=== PATIENT | male | born 1925 | race Caucasian/White ===

== ENCOUNTER → 2016-09-16 | Outpatient (CLI) | payer MEDICARE ==
[~2016-09-16] MED LIST: ACETAMINOPHEN PO; ALLOPURINOL300 MG PO; ASPIRIN81 M2 PO; BACID PO; CARBIDOPA-LEVO1 EAC5 PO; ELIQUIS2.5 MG PO; EYE VITAMIN; FERROUS SULFAT324 MG PO; FLOMAX0.4 M1; FLOMAX0.4 M1 PO; FLORINEF0.1 M1 PO; KCL PO; LOMOTIL WHITE2.5 M1 PO; MEGACE ORA40 MG/ML S PO; METOPROLOL SUCC25 MG PO; NEURONTIN100 MG PO; ONDANSETRON ODT4 MG PO; PRILOSEC PO; SINEMET-25/1001 TA1 PO; TRIAMTERENE-HC1 EAC1 PO; VANCOMYCIN HCL500 MG PO
--- NOTE | ~2016-09-16 | CT2 ---
[facility]. [facility] A Service of [facility] & [facility] RADIOLOGY TEXT RESULTS PATIENT: SANDY FRAUSTO LOCATION: [facility] : [birth year] UNIT #: [id number] AGE: [address]: Terry Bustillo MD SEX: M ORDER DR: [id number] [place] [id number] MR#: [id number] Acc #: [id number] NAME: SANDY FRAUSTO : 1925 SEX: M STUDY DATE/TIME: 09/16/2016 9:30 UNIT: [facility] ROOM: STUDY DESCRIPTION: CT Abd and Pelv W Cont Attending Physician: Terry Bustillo M.D. Referring Physician: Terry Bustillo M.D. Ordering Physician: Terry Bustillo M.D. Primary Care Physician: Irwin Ruano M.D. MEDICAL IMAGING REPORT This report is preliminary unless electronic signature is present. EXAM CT abdomen and pelvis INDICATION Anemia. 30 pound weight loss over 2 months. Hematochezia. Right-sided palpable mass/lump. Lower abdominal pain. TECHNIQUE CT of the abdomen and pelvis with p.o. and IV contrast (60 mL Isovue-370 IV contrast). Coronal and sagittal reconstructions were obtained. This CT exam was performed with one or more of the following radiation dose reduction techniques: automatic exposure control, adjustment of mA and/or kV according to patient size, and iterative reconstruction. COMPARISON None available. FINDINGS ABDOMEN: There is a circumferential mass involving the cecum and proximal ascending colon. The mass measures up to 9.0 cm in length. The irregular eccentric wall thickening measures up to 2.1 cm. There is stranding in the pericolonic fat indicating subserosal invasion. An abnormal lymph node in the right lower quadrant mesentery measures 1.7 x 2.5 cm. This has appearance of a primary colonic neoplasm. There is normal and uniform enhancement of the liver. The pancreas, spleen, adrenal glands, and kidneys are within normal limits. The small bowel is not dilated. No enlarged retroperitoneal lymph nodes. There is a 3.0 cm infrarenal abdominal aortic aneurysm. There is a focal stenosis of the proximal left common iliac artery. This is estimated at 70%-80% luminal stenosis. There is moderate atherosclerotic disease of STS. [facility] A Service of [facility] RADIOLOGY TEXT RESULTS PATIENT: SANDY FRAUSTO LOCATION: [facility] : [birth year] UNIT #: [id number] AGE: [address]: Terry Bustillo MD SEX: M ORDER DR: the right common iliac artery and the external iliac arteries. PELVIS: Bladder is unremarkable. There appears to have been prior left and right inguinal hernia repairs. No enlarged pelvic or inguinal lymph nodes. No acute osseous abnormalities. IMPRESSION 1. Eccentric mucosal thickening within the cecum and ascending colon compatible with a large mass measuring up to 9.0 cm. This has appearance most typical for an adenocarcinoma. Confirmation with colonoscopy is recommended. 2. Enlarged right lower quadrant mesenteric lymph node consistent with local metastatic disease. 3. 3.0 cm infrarenal abdominal aortic aneurysm. 4. 70%-80% luminal stenosis of the proximal left common iliac artery. 5. Not mentioned above, there is a lytic lesion associated with the superior endplate of L3. This is most consistent with a Schmorl's node, however can be followed. Unexpected findings were called to Dr. Bustillo's office at 10:30 on 09/16/2016. A message was left for Dr. Bustillo with the office staff. Dictated by... Antony Stovall M.D. THIS IS AN ELECTRONICALLY VERIFIED REPORT Antony Stovall M.D. at 09/16/2016 12:43 PM MILLICENT/darnell TD: 09/16/2016 10:42 JOB #: [id number] MEDICAL IMAGING REPORT Page 1 of 1
[2016-09-16 08:20] LABS: POC - CREATININE 1.23 mg/dL (0.64-1.27)
== END | disposition home or self-care (01) ==
LOC: SCT 10:00
PROVIDERS: Internal Medicine Gastroenterology
DX: D50.9 Iron deficiency anemia, unspecified (principal); R63.4 Abnormal weight loss; K63.89 Other specified diseases of intestine; R59.0 Localized enlarged lymph nodes; I70.8 Atherosclerosis of other arteries; I72.2 Aneurysm of renal artery
CPT/HCPCS: 74177; 82565; Q9967

== ENCOUNTER 2016-09-22 14:30 | Inpatient (IN) | payer MEDICARE ==
--- NOTE | ~2016-09-22 | FU ---
[facility] Nutrition Therapy DATE: 10/09/16 Patient: SANDY BARTONBRUCE Physician: DAYANARA Address: [address] [place] [address] Room/Bed: [address] [place] [address], Zip: [place] [address] Admit Date: 09/22/16 Date of : [birth year] Height: 5 8 Weight: 160 73 NUTRITION MONITORING/FOLLOW-UP: Reason: Nutrition follow up Anthropometrics: Wt 10/06 (last updated wt): 73 kg Labs: Cl- 114 Ca++ 7.3 CFR 48.4 Meds: Megace oral, protonix, phenergan, zofran I&O's: 2280/3, last BM 10/07, active bowel sounds Skin: Open surgical wound to abdomen Edema: Right hand 1+ BLE 2+ Diet: Regular Assessment: Chart reviewed, events noted. Pt is now s/p repair of abdominal wound dehiscence. Pt is ordered a regular diet, and eating minimal amounts since surgery per his son's report. Pt's son believes this is due to the pt being lethargic from surgery, as he has been sleeping a majority of the time since surgery. RD spoke with the pt, who reports that he is in pain, unlike the previous surgeries. Of note, the pt's surgical wound is open. RD encouraged the pt to consume Ensure supplements since his intake of solid food is minimal. Pt is agreeable to Ensure strawberry, although "he does not love them". Pt's family understands that it is important for the pt to increase his protein-energy intake, and confirmed that they will encourage food and supplement intake as tolerated. Per RD spring internship conversation with the pt's family yesterday, the pt was eating very well on 10/07, and was happy with the advancement to solid food. Pt consumed biscuits and gravy, as well as 100% of a burger on 10/07. RD will order Ensure supplements. Per MD note in chart, the pt can be discharged once he is eating well. Dx: 1) Unintentional weight loss RT decreased appetite, recent bowel surgery AEB 35# weight loss in 2-3 months (15% body weight loss)- ACTIVE 2) Inadequate protein-energy intake RT decreased appetite, recent bowel surgery, lethargy AEB minimal intake post-op reported by the pt and family- ACTIVE Intervention: 1. Ensure BID 2. Continue current diet + 6 small meals [facility] Nutrition Therapy DATE: 10/09/16 Patient: SANDY FRAUSTO Physician: DAYANARA Address: [address] [facility] Room/Bed: [address] [place] [address], Zip: [place] [address] Admit Date: 09/22/16 Date of : [birth year] Height: 5 8 Weight: 160 73 Monitoring, Evaluation and Goals: 1. Tolerance of diet advancement- MET 2. Oral intake >50% of meals- NOT MET 3. GI; promote regular GI function- NOT MET/ IN PROGRESS 4. Skin; promote healing- IN PROGRESS NEW GOALS (IN ADDITION TO ONES IN PROGRESS ABOVE): 1. Weight; update weights, prevent weight loss Recommendations: 1. Continue regular diet as tolerated, adding 6 small meals as needed. Monitor for signs of GI intolerance. 2. Ensure strawberry BID, or as often as desired by the patient. 3. Discontinue Magic Cup supplements due to patient preference. 4. Appreciate staff and family encouraging and assisting with nutritional intake as needed. 5. If the pt's intake does not improve, consider obtaing short-term enteral access for supplemental nutrition. RD will contiue to follow and make recommendations as appropriate. Status: Pt is at moderate nutritional risk. Respectfully, BENJAMIN MADRID RD, LD Food and Nutritional Services [facility] cc: client file
--- NOTE | ~2016-09-22 | OR ---
Unit #: [id number] #: [id number] Patient: SANDY FRAUSTO [id number] [address] [place], [place] [address] [id number] I MR#: [id number] NAME: SANDY FRAUSTO. ROOM: 476 Date of Procedure: 09/23/2016 Admission Date: 09/22/2016 Surgeon: Gabe Bush M.D. : 1925 Attending Physician: Terry Bustillo M.D. Primary Care Physician: Irwin Ruano M.D. OPERATIVE REPORT PREOPERATIVE DIAGNOSIS Ascending colon cancer. POSTOPERATIVE DIAGNOSIS Ascending colon cancer. PROCEDURES PERFORMED Exploratory laparotomy, right hemicolectomy. ANESTHESIA General endotracheal anesthesia. ESTIMATED BLOOD LOSS 50 mL. INDICATIONS FOR PROCEDURE An 89-year-old gentleman, who presented with symptomatic iron deficiency anemia and on colonoscopy, he was found to have a near obstructing ulcerated mass in the ascending colon. DESCRIPTION OF PROCEDURE The patient was transported from his hospital room to preoperative hold. In preoperative hold, he received Entereg and IV antibiotics per SCIP protocol. He was then transported to the operating room, where after induction of general endotracheal anesthesia, SCDs were placed. Garcia catheter was placed and an NG tube was placed. His abdominal wall hair was clipped, and he was prepped and draped in usual sterile fashion. A midline incision was made, dissected down through the soft tissue and entered into the peritoneal cavity. Upon entering the peritoneal cavity, the right colon was identified. It was mobilized along the right peritoneal reflection. The hepatic flexure was mobilized and I mobilized the proximal transverse colon and the terminal ileum. The terminal ilium and the proximal transverse colon were divided with NGUYEN staplers. The mesentery was then clamped, divided, and ligated and the right colon specimen was removed. There was a large bulky tumor just above the cecum. I irrigated and there was good hemostasis. The duodenum was visualized and was intact. The antimesenteric border of the terminal ilium was secured to the anterior tenia of the transverse colon. The colotomy and enterotomy were made and the full length of the 75 mm NGUYEN stapler was used to create a functional end-to-end [id number] stapled anastomosis. The open end was closed with a TA 60 stapler and then all staple lines were oversewn with 3-0 silk suture. The mesenteric defect was then closed with Unit #: [id number] #: [id number] Patient: SANDY FRAUSTO 3-0 silk suture. There were no palpable liver lesions. No gallstones were palpable. The NG tube was well positioned. There was excellent hemostasis. Omentum was placed over the anastomosis and then the bowel was placed back in the anatomic position. Once counts were correct, the midline fascia was closed with #1 PDS running suture. Once the fascia was closed, it was irrigated with saline and Betadine and the skin was closed with sterile skin mike. Dry sterile dressings were placed. Sponges and needle counts were correct x3. The patient tolerated the procedure well and transported to recovery in stable condition. Findings and postoperative expectations were discussed with his family. Dictated by... George Pisano/yen TD: 09/24/2016 01:45 JOB #: [id number] OPERATIVE REPORT Page 1 of 1 X Gabe Bush MD PROCEDURE OPERATIVE NOTE
--- NOTE | ~2016-09-22 | EKG ---
PATIENT: SANDY FRAUSTO UNIT #: [id number] Ventricular Rate: 72 BPM Atrial Rate: 75 BPM P-R Interval: 188 ms QRS Duration: 130 ms Q-T Interval: 442 ms QTC Calculation(Bezet): 483 ms P [place]: 47 degrees Calculated R [place]: -33 degrees Calculated T [place]: 76 degrees Diagnosis Line: Sinus rhythm with Premature atrial complexes Diagnosis Line: Left axis deviation Diagnosis Line: Left bundle branch block Diagnosis Line: Abnormal ECG Diagnosis Line: No previous ECGs available Diagnosis Line: Confirmed by MARICEL MYRICK MD ([id number]) on Diagnosis Line: 09/22/2016 10:58:36 PM INTERPRETING MD: KELLI
--- NOTE | ~2016-09-22 | CR4 ---
[facility] A Service of [facility] & [facility] RADIOLOGY TEXT RESULTS PATIENT: SANDY FRAUSTO LOCATION: [place] [address] : [birth year] UNIT #: [id number] AGE: [address]: Terry Bustillo MD SEX: M ORDER DR: [id number] [facility] [address] [facility]. [place], [place] [address] [id number] I MR#: [id number] Acc #: [id number] NAME: SANDY FRAUSTO. : 1925 SEX: M STUDY DATE/TIME: 09/27/2016 7:48 UNIT: [facility] ROOM: [facility] STUDY DESCRIPTION: CR Abdomen Flat Upright or Dec Attending Physician: Terry Bustillo M.D. Ordering Physician: Gabe Bush M.D. Primary Care Physician: Irwin Ruano M.D. MEDICAL IMAGING REPORT This report is preliminary unless electronic signature is present EXAM Flat and upright abdomen, 09/27/2016 HISTORY Postop colon resection, September 23, follow up. FINDINGS Flat and upright views of the abdomen were obtained. Gas identified in the transverse colon. There are a few air-filled loops of small bowel. Gas is seen to the sigmoid area. No free air is identified. CONCLUSION Apparent postop abdomen. Findings suggest a mild ileus. Dictated by... Linwood Kelly M.D. THIS IS AN ELECTRONICALLY VERIFIED REPORT Linwood Kelly M.D. at 09/28/2016 9:16 AM GUICHO/anais TD: 09/27/2016 14:53 JOB #: [id number] MEDICAL IMAGING REPORT Page 1 of 1 COPY
--- NOTE | ~2016-09-22 | OR ---
Unit #: [id number] #: [id number] Patient: SANDY FRAUSTO [id number] [address] [place], [place] [address] [id number] I MR#: [id number] NAME: SANDY FRAUSTO. ROOM: 476 Date of Procedure: 09/22/2016 Admission Date: 09/22/2016 Surgeon: Terry Bustillo M.D. : 1925 Attending Physician: Terry Bustillo M.D. Primary Care Physician: Irwin Ruano M.D. OPERATIVE REPORT PREOPERATIVE DIAGNOSES The patient presented with history of significant weight loss, abdominal pain, increasing constipation, anorexia, and he had 30 pounds of weight loss. In addition, he feels extremely fatigued and tired and found to have iron deficiency anemia. PROCEDURES PERFORMED Upper gastrointestinal endoscopy and biopsy as well as colonoscopy with biopsy and colonoscopy with submucosal injection. POSTOPERATIVE DIAGNOSES For upper endoscopy: 1. The patient had distal esophageal mucosal ring. This was dilated using repeated punch biopsy in the same area of the ring. Otherwise, examination was normal up to third part of duodenum. A biopsy obtained from the antrum for CLOtest. For colonoscopy: 1. The patient had a large nearly obstructing colon cancer at the junction of cecum and adjoining ascending colon. The tumor was at least 7 cm in length with very small part of the cecal pouch being left uninvolved. The tumor was exophytic, ulcerated, friable, and fungating. Multiple biopsies obtained from the mass for histology. In addition, the mucosa immediate proximal to the tumor was tattooed using Hafsa ink. 2. The patient had mild allen-diverticulosis. 3. Rest of the examination was normal. RECOMMENDATIONS Detailed discussion was held with the patient and his 2 daughters and it was pointed to them that the patient will require a right hemicolectomy because of advanced obstructing cancer. It is also noteworthy that there are no distant mets as well as the CAT scan results concern. We will obtain cardiac clearance and surgical consultation. The patient is agreeable for admission. SEDATION USED MAC. DESCRIPTION OF PROCEDURE Following detailed explanations of potential risks and complications of an upper endoscopy and a colonoscopy, namely perforation, bleeding, and complications related to sedation, the patient was brought to GI lab and laid in the left lateral decubitus position. Lubricated tip of the Unit #: [id number] #: [id number] Patient: SANDY FRAUSTO Olympus video upper endoscope was passed through the bite block into the proximal esophagus under direct vision. The entire esophageal mucosa was examined and appeared normal except for presence of distal esophageal ring. The latter was felt to be a distal esophageal ring. The scope was then advanced into the gastric cavity. The latter was insufflated. Mucosa of the fundus, body, and antrum was examined and appeared unremarkable. Pylorus was intubated with visualization of the normal duodenal bulb and second and third part of the duodenum. Upon withdrawal and retroflexion, incisura, cardia, and greater curve examined and biopsy obtained from the antrum for CLOtest. The entire esophageal mucosa was examined. The scope was withdrawn in the distal esophagus. Multiple punch biopsy of the same area of the ring was done to make the ring ineffective. The entire esophageal mucosa was examined all the way up to pharynx. No additional findings noted. The examination table was then turned by 180 degrees and the patient was positioned for a colonoscopy. A digital rectal examination was performed, which was normal. Lubricated tip of the Olympus video colonoscope was inserted through the anus and advanced under direct vision. The scope was advanced and passed up to sigmoid into descending colon. Scant small diverticula were noted in this area. The scope tip was then navigated all the way up to cecum. The patient was noted to have a large fungating exophytic ulcerated mass in the proximal ascending colon and adjacent cecum. The mass was extending for at least 7 cm and was circumferential and nearly obstructing. Very small part of the cecal pouch adjacent to appendiceal orifice was uninvolved. It was impossible to identify the anatomy of the ileocecal valve. Extensive biopsies obtained from the mass and then the area immediately proximally was tattooed using Hafsa ink. Successive segments of the colonic mucosa were examined upon withdrawal. No additional findings noted. The patient did not have any significant internal hemorrhoids at anal verge. The scope was then withdrawn. The patient returned to the recovery area. He tolerated the procedure without any postprocedure complications. Dictated by.Chey. George King/yen TD: 09/23/2016 05:01 JOB #: [id number] OPERATIVE REPORT Page 1 of 1 X Trery Bustillo MD PROCEDURE OPERATIVE NOTE
--- NOTE | ~2016-09-22 | OR ---
Unit #: [id number] #: [id number] Patient: SANDY FRAUSTO [id number] [address] [place], [place] [address] [id number] I MR#: [id number] NAME: SANDY FRAUSTO. ROOM: 479 Date of Procedure: 10/08/2016 Admission Date: 09/22/2016 Surgeon: Blayne Courtney III, M.D. : 1925 Attending Physician: Terry Bustillo M.D. Primary Care Physician: Irwin Ruano M.D. OPERATIVE REPORT PREOPERATIVE DIAGNOSIS Wound infection with wound dehiscence. POSTOPERATIVE DIAGNOSIS Wound infection with wound dehiscence. PROCEDURES PERFORMED Repair of abdominal wall wound dehiscence with Vicryl mesh and sharp excisional debridement of necrotic tissue along abdominal fascia. ANESTHESIA General. SPECIMENS None. ESTIMATED BLOOD LOSS Less than 100 mL. INDICATIONS FOR PROCEDURE This is an 89-year-old gentleman, who has undergone a prior colectomy and then had a wound dehiscence postoperatively. He then developed a wound infection after his initial repair of wound dehiscence. Over the course of the last two days, he has been draining a lot of serous fluid from the wound and had obvious pull-through of the sutures consistent with a dehiscence along the lower portion of the wound. He is here today for repair of this. DESCRIPTION OF PROCEDURE After consent was obtained, the patient was brought to the operating room and placed in the supine position. General anesthetic was administered and his abdomen was prepped and draped in standard surgical fashion. I began by removing the Vicryl sutures that had pulled-through. I performed a limited exploratory laparotomy to make sure that there were no underlying abscess pockets. I then irrigated the abdominal cavity copiously. I then turned my attention to sharply debride the abdominal fascia back to healthy viable tissue. I then took a piece of Vicryl mesh and performed a posterior repair with interrupted 0 Vicryl U-stitches going through full-thickness bites of the abdominal fascia and then through the mesh and then back up through the anterior fascia and tied anteriorly. This was done circumferentially around the incision to take weight off the fascial edges. Once I had the mesh in good position, I Unit #: [id number] #: [id number] Patient: SANDY FRAUSTO then closed the midline fascia with interrupted 0 Prolene sutures and interrupted #1 Vicryl sutures. I then irrigated again and packed the wound open with a Kerlix normal saline wet-to-dry dressing change. He tolerated the procedure without any problems and returned to the recovery room in stable condition. Dictated by... Blayne Courtney III, M.D. VCL/yen TD: 10/08/2016 16:53 JOB #: [id number] OPERATIVE REPORT Page 1 of 1 X Blayne Courtney III, MD PROCEDURE OPERATIVE NOTE
--- NOTE | ~2016-09-22 | EKG ---
PATIENT: SANDY FRAUSTO UNIT #: [id number] Ventricular Rate: 83 BPM Atrial Rate: 83 BPM P-R Interval: 186 ms QRS Duration: 140 ms Q-T Interval: 420 ms QTC Calculation(Bezet): 493 ms P [place]: 52 degrees Calculated R [place]: -37 degrees Calculated T [place]: 71 degrees Diagnosis Line: Sinus rhythm with Premature atrial complexes Diagnosis Line: Left axis deviation Diagnosis Line: Left bundle branch block Diagnosis Line: Abnormal ECG Diagnosis Line: Diagnosis Line: Confirmed by MARICEL MYRICK MD ([id number]) on Diagnosis Line: 10/11/2016 2:54:32 PM INTERPRETING MD: KELLI
--- NOTE | ~2016-09-22 | CR4 ---
[facility] A Service of [facility] & [facility] RADIOLOGY TEXT RESULTS PATIENT: SANDY FRAUSTO LOCATION: [place] [address] : [birth year] UNIT #: [id number] AGE: [address]: Terry Bustillo MD SEX: M ORDER DR: [id number] [facility] [address] [facility]. [place], [place] [address] [id number] I MR#: [id number] Acc #: [id number] NAME: SANDY FRAUSTO. : 1925 SEX: M STUDY DATE/TIME: 10/01/2016 14:59 UNIT: [facility] ROOM: [facility] STUDY DESCRIPTION: CR Abdomen Flat Upright or Dec Attending Physician: Terry Bustillo M.D. Ordering Physician: Gabe Bush M.D. Primary Care Physician: Irwin Ruano M.D. MEDICAL IMAGING REPORT This report is preliminary unless electronic signature is present EXAM Flat and upright abdomen. INDICATION Loose stools. History of colon resection. COMPARISON Comparison with 09/27/16. FINDINGS There is gas-filled dilated loops of small bowel and colon with a pattern suggestive of ileus. No free air is seen on upright view. Degenerative changes of the spine. IMPRESSION Dilated loops of colon and small bowel with a pattern suggestive of ileus. Dictated by... Kashif Parks M.D. THIS IS AN ELECTRONICALLY VERIFIED REPORT Kashif Parks M.D. at 10/02/2016 7:02 AM CLAUDE/kimmie TD: 10/01/2016 16:46 JOB #: [id number] MEDICAL IMAGING REPORT Page 1 of 1 COPY
--- NOTE | ~2016-09-22 | DS ---
Unit #: [id number] #: [id number] Patient: SANDY FRAUSTO [id number] [address] [address] [id number] I MR#: [id number] NAME: SANDY FRAUSTO. ROOM: 479 Age: 89 Sex: M Admission Date: 09/22/2016 : 1925 Discharge Date: 10/10/2016 Attending Physician: Terry Bustillo M.D. Primary Care Physician: Irwin Ruano M.D. DISCHARGE SUMMARY DIAGNOSES 1. Ascending colon cancer, status post right hemicolectomy. 2. Subsequent wound dehiscence and the patient had two exploratory laparotomies, followed by repair. 3. Underlying malnutrition. DISCHARGE MEDICATIONS 1. Flomax 0.4 mg p.o. daily. 2. Gabapentin 100 mg p.o. at nighttime. 3. Megace 4 mg p.o. daily. 4. Metoprolol 25 mg p.o. b.i.d. 5. Allopurinol 300 mg p.o. daily. 6. Carbidopa/levodopa 25/100 mg 2 tablets p.o. t.i.d. 7. Protonix 40 mg p.o. daily. 8. Clindamycin 600 mg IV q.6 h. for a total of 3 more days. FOLLOWUP 1. The patient will be followed up with the [facility] after rehab is finished. 2. He will also follow up with me in the office. Appropriate instructions given to the family. Dictated by... George King/jennie TD: 10/10/2016 15:34 JOB #: [id number] CC: George King M.D. Vincent C. Lusco, III, M.D. Subhash P. Sheth, M.D. Michael Becker, M.D. Unit #: [id number] #: [id number] Patient: SANDY FRAUSTO DISCHARGE SUMMARY Page 1 of 1 X Terry Bustillo MD DISCHARGE SUMMARY
--- NOTE | ~2016-09-22 | FU ---
[facility] Nutrition Therapy DATE: 10/03/16 Patient: SANDY BARTONBRUCE Physician: DAYANARA Address: [address] [place] [address] Room/Bed: [address] [place] [address], Zip: [place] [address] Admit Date: 09/22/16 Date of : [birth year] Height: 5 8 Weight: 158 72 NUTRITION MONITORING/FOLLOW-UP: Reason: Follow-up, consult re: TPN Dx: colon cancer Anthropometrics: ht: 5'8" wt: 158# (71 kg) BMI: 24 -Family reports pt's weight 145# Labs: Glu 189 Na+ 131 Ca++ 7.0 Alb 1.8 ALT 7 Prealb <2.0 Trig 183 Meds: Protonix (IV), megace, KCl, phenergan, lovenox, NaCl, zofran, reglan I&O's: 2609/235. BM 10/02 (diarrhea) Skin: scar- abdomen, bruise- BUE, closed surgical incision/abd binder- abdomen Estimated Nutrition Needs: 8250-5502 (25-30 kcal/kg) 68-102 g protein (1.0-1.5 g/kg) 68kg used for calculation Assessment: Chart reviewed, events noted. Pt has recent diagnosis of colon cancer. Per chart, pt has a possible ileus. As of today, TPN is to be started in the am, per chart. RD spoke with pt and pt's daughter at bedside. The pt is currently on a clear liquid diet. Pt and pt's daughter explained that the pt has had n/v, but he is hungry and wants to try to eat. The pt was on a regular diet on 09/30- and did tolerate a small amount of food on those days, having bowel movements, although they were not solid. The pt's daughter had many questions about the TPN and the benefits of it versus enteral nutrition. The pt is very weak and becoming malnourished. Please see recommendations below, RD to follow. Dx: Unintentional weight loss r/t decreased appetite, malabsorption, clinical condition AEB 35# weight loss in 2-3 months (15% body weight loss) -ACTIVE New Dx: Inadequate protein-energy intake r/t decreased appetite, current clinical condition AEB pt reported minimal intake Intervention: 1. Clear liquid diet Monitoring, Evaluation and Goals: 1. Tolerance of diet advancement with oral intake >50% of meals -Not met 2. Maintain current weight status/prevent further loss -Unmeasured (no new weight) [facility] Nutrition Therapy DATE: 10/03/16 Patient: SANDY FRAUSTO Physician: DAYANARA Address: [address] [place] [address] Room/Bed: [address] [place] [address], Zip: [place] [address] Admit Date: 09/22/16 Date of : 11/24/26 Height: 5 8 Weight: 158 72 3. GI function WNL -In progress New goals: 1. Oral intake; tolerate >50% of all meals/supplements 2. Enteral nutrition; if initiated, receive >80% estimated goal volume x 24 hours Recommendations: 1. Ensure clear TID 2. Once diet advances to full liquid, order ensure strawberry supplements TID + vanilla magic cup and encourage adequate intake of all supplements. 3. Once diet advances further, recommend high protein/high calorie to promote weight maintenance/prevent weight loss 4. If unable to tolerate PO intake and enteral access is obtained, begin enteral nutrition support with Vital 1.5 @ 20 mL/hr and advance 10 mL q 8 hours to goal rate of 50 mL/hr. This will provide 1800 kcal, 81 g protein, 912 mL H20. Free water flushes per MD. 5. TPN is not indicated at this time. If pt cannot tolerate PO intake or enteral nutrition, re-consult RD for TPN. RD will f/u per protocol as pt is at mod/severe nutritional risk. Respectfully, KAYLA TAI, internet and e business project manager Justino Pelletier MS, RD, LD Food and Nutritional Services [facility] cc: client file
--- NOTE | ~2016-09-22 | FU ---
[facility] Nutrition Therapy DATE: 09/30/16 Patient: SANDY FRAUSTO Physician: DAYANARA Address: [address] [place] [address] Room/Bed: [address] [place] [address], Zip: [place] [address] Admit Date: 09/22/16 Date of : [birth year]/24/26 Height: 5 8 Weight: 158 72 NUTRITION MONITORING/FOLLOW-UP: Reason: NUTRITION FOLLOW-UP DX: 89 Y.O. MALE ADMITTED WITH IRON DEFICIENCY ANEMIA AND WEIGHT LOSS, FOUND TO HAVE STAGE III COLON CANCER Anthropometrics: '8", 162# (74 KG) (PER BED SCALE 09/30, NO UPDATED MEDITECH WT), BMI 24 -ADMIT WEIGHT 158# Labs: NA+ 133, GLU 57, CA++ 7.3, ALB 2.0, ALT 5.0 Meds: PPI, NACL, ZOFRAN PRN I&O's: 460/1091, 5 BM'S Skin: FUNGAL FEET. EDEMA: BLE TRACE, CSI ABDOMEN Assessment: CHART REVIEWED, EVENTS NOTED. RD MEDICAL OBSERVER SPOKE WITH FAMILY, PT SLEEPING AT TIME OF VISIT. PT FAMILY REPORTED THAT THE PT HAS HAD A VERY POOR APPETITE AND BARELY EATEN ANYTHING TODAY. RD MEDICAL OBSERVER HELPED FAMILY CHOOSE A HIGH PROTEIN/HIGH CALORIE MEAL TO ORDER FOR DINNER PT HAS ADVANCED TO REGULAR DIET. PT FAMILY REPORTS NOT RECEIVING ANY ENSURE SUPPLEMENTS ALTHOUGH RD ORDERED 09/25. RD WILL ORDER AGAIN PER FAMILY REQUEST AND CONTINUE TO FOLLOW UP. Dx: UNINTENTIONAL WEIGHT LOSS R/T DECREASED APPETITE, MALABSORPTION, CLINICAL CONDITION AEB 35# WEIGHT LOSS IN 2-3 MONTHS (15% BODY WEIGHT LOSS; SEVERE) -ACTIVE Intervention: 1. ENSURE SUPPLEMENTS BID + MAGIC CUP 2. REGULAR DIET Monitoring, Evaluation and Goals: 1. TOLERANCE OF DIET ADVANCEMENT WITH ORAL INTAKE >50% OF MEALS -IN PROGRESS 2. MAINTAIN CURRENT WEIGHT STATUS/PREVENT FURTHER LOSS -UNMEASURED (NO NEW WEIGHT) 3. GI FUNCTION WNL -IN PROGRESS NO NEW GOALS AT THIS TIME. Recommendations: 1. RECOMMEND CHANGING DIET ORDER FROM REGULAR TO HIGH PROTEIN/HIGH CALORIE TO PROMOTE WEIGHT MAINTENANCE/PREVENT WEIGHT LOSS [facility] Nutrition Therapy DATE: 09/30/16 Patient: SANDY FRAUSTO Physician: DAYANARA Address: [address] [place] [address] Room/Bed: [address] [place] [address], Zip: [place] [address] Admit Date: 09/22/16 Date of : 11/24/26 Height: 5 8 Weight: 158 72 2. STRAWBERRY ENSURE BID + VANILLA MAGIC CUP BID 3. PLEASE OBTAIN CURRENT WEIGHT AND ENTER INTO MarkTend, WEIGHT q 3 DAYS FOR MONITORING PURPOSES THE PT HAS LOST 15% BW IN THE PAS 2-[address] WILL F/U PER PROTOCOL, PT AT MODERATE NUTRITIONAL RISK. Respectfully, KAYLA TAI, CREDIT RISK ANALYST LADY CACERES MS, RD, LD Food and Nutritional Services [facility] cc: client file
--- NOTE | ~2016-09-22 | EKG ---
PATIENT: SANDY FRAUSTO UNIT #: [id number] Ventricular Rate: 118 BPM Atrial Rate: 118 BPM P-R Interval: 150 ms QRS Duration: 134 ms Q-T Interval: 378 ms QTC Calculation(Bezet): 529 ms P Delta: 68 degrees Calculated R Delta: 158 degrees Calculated T Delta: -7 degrees Diagnosis Line: Sinus tachycardia with Premature atrial complexes Diagnosis Line: with Aberrant conduction Diagnosis Line: Non-specific intra-ventricular conduction block Diagnosis Line: Possible Lateral infarct (cited on or before Diagnosis Line: 30-SEP-2016) Diagnosis Line: Abnormal ECG Diagnosis Line: When compared with ECG of 30-SEP-2016 12:58, Diagnosis Line: (unconfirmed) Diagnosis Line: Questionable change in QRS axis Diagnosis Line: Questionable change in initial forces of Lateral Diagnosis Line: leads Diagnosis Line: T wave inversion now evident in Inferior leads Diagnosis Line: T wave amplitude has increased in Lateral leads Diagnosis Line: Confirmed by BRENNA CHAMPAGNE MD ([id number]) on 10/01/2016 Diagnosis Line: 7:47:52 AM INTERPRETING MD: MAHI WEBB
--- NOTE | ~2016-09-22 | CO ---
Unit #: [id number] #: [id number] Patient: SANDY MEANS [id number] [facility]. [address] [place], [place] [address] [id number] MR#: [id number] NAME: SANDY MEANS ROOM: 476 Age: 89 Sex: M Admission Date: 09/22/2016 : 1925 Attending Physician: Terry Bustillo M.D. Primary Care Physician: Irwin Ruano M.D. Consultation Date: 09/23/2016 CONSULTATION REPORT REASON FOR CONSULTATION Cardiac clearance for colon surgery. HISTORY OF PRESENT ILLNESS This is an 89-year-old white male with a history of hypertension, Parkinson and also newly diagnosed right-sided colon cancer. The patient has been worked up by Dr. Terry Bustillo and he admitted the patient. The patient has lost 30 pounds in the last 6 months. He had a palpable mass in the right lower quadrant of the abdomen, along with complaints of increased fatigue and constipation. The patient had an upper endoscopy and colonoscopy and was found to have an exophytic ulcerated and friable circumferential, nearly obstructing mass at the junction of the cecum and the proximal ascending colon. The patient was admitted for scheduled surgery by LSA. The patient has received a unit of blood along with an iron infusion. The patient had been having some dark stools and, as mentioned decreased appetite and has lost 30 pounds. As far as cardiac history, he has had a stress test 20-30 years ago and has never been seen by cardiology recently. He denies any chest pain, pain in his neck, bilateral jaws, shoulders, arms or elbow. He denies any palpitations. He has been a little lightheaded and weak recently, but no syncopal episodes. He denies any increased lower extremity edema. No recent cough, fever or chills. No nausea, vomiting or diarrhea. The patient will have cardiac consult to clear for surgery. PAST MEDICAL HISTORY 1. Parkinson disease. 2. Hypertension. 3. Benign prostatic hypertrophy. 4. History of gout. 5. Macular degeneration. 6. CT of the abdomen and pelvis done 09/16/2016 showing a large mass in the cecum and ascending colon, along with a 70%-80% stenosis of the proximal left common iliac artery and 3.0 cm infrarenal abdominal aortic aneurysm. 7. Nonsmoker. PAST SURGICAL HISTORY 1. Triple hernia repair. 2. Tonsillectomy. 3. Recent EGD and colonoscopy by Dr. Bustillo. SOCIAL HISTORY The patient lives with his spouse, who has recently been diagnosed with Unit #: [id number] #: [id number] Patient: SANDY MEANS pancreatic cancer herself. He has a remote history of smoking only about 15 years in his 20s or early 30s. No alcohol abuse. No illicit drug abuse. FAMILY HISTORY No known coronary disease in his immediate family members. ALLERGIES Penicillin. HOME MEDICATIONS 1. Flomax 0.4 mg p.o. daily. 2. Allopurinol 300 mg p.o. daily. 3. Triamterene/hydrochlorothiazide 37.5/25 mg 1 tablet p.o. daily. 4. Vitamin eyedrops daily. 5. Aspirin 81 mg daily. 6. Carbidopa/levodopa 25/100 mg 1 tablet t.i.d. 7. Neurontin 100 mg p.o. at bedtime. 8. Metoprolol 25 mg p.o. at bedtime. REVIEW OF SYSTEMS See details in history of present illness. PHYSICAL EXAMINATION GENERAL: Mr. Means is an 89-year-old white male in no acute respiratory distress. He is awake, alert and oriented. VITALS: He is hard of hearing. HEENT: Blood pressure 105/43, heart rate 60, respiratory rate 16, afebrile, O2 saturations 97% on room air. NECK: Trachea midline. No thyromegaly or lymphadenopathy. Normal carotid upstrokes. No jugular venous distension. LUNGS: Bilateral clear throughout. No wheezes, rales or rhonchi. HEART: S1 and S2. Regular rate and rhythm. Soft systolic murmur over the aortic region, left sternal border. ABDOMEN: Soft. Tender in the right lower quadrant. EXTREMITIES: Pedal pulses are very weak. Good femoral pulses. No edema. DIAGNOSTIC STUDIES IMAGING: CT of the abdomen and pelvis done on 09/16/2016 showed a large mass measuring 9.0 cm in the cecum and ascending colon, enlarged right lower quadrant mesenteric lymph node, 3.0 cm infrarenal abdominal aortic aneurysm, 80% luminal stenosis of the proximal left common iliac artery. LABORATORY: Glucose 103, BUN 12, creatinine 0.6, EGFR 89.2, sodium 135, potassium 3.4, chloride 107, CO2 22, calcium 10.9, total protein 5.4, albumin 2.6, bilirubin total 1.3, AST 11, ALT 5, alkaline phosphatase 58. CEA is 4.5, white blood cell count 8.9, hemoglobin 8.6, hematocrit 27.2, platelets 255. CARDIOVASCULAR: EKG shows normal sinus rhythm with occasional premature atrial complex. He does have a left bundle branch block, left axis deviation, poor R wave progression. Looking back on previous EKGs, back in 2010 he had an EKG that showed a left bundle branch block. ASSESSMENT 1. Right lower quadrant mass, status post EGD and colonoscopy that showed a cecal mass nearly obstructing at the junction of the cecum and proximal ascending colon. Unit #: [id number] #: [id number] Patient: SANDY MEANS 2. Left bundle branch block on EKG. 3. Hypertension. 4. Parkinson disease. 5. BPH. 6. History of gout. 7. Macular degeneration. 8. Nonsmoker. PLAN 1. Cardiology consult to assist with evaluation and management and also to clear the patient for the upcoming colon surgery. He had a two-dimensional echo done STAT at the bedside. Preliminary report showed left ventricular ejection fraction of 55% with mild aortic stenosis. On exam and interview with the patient there are no signs or symptoms of him having unstable angina or acute congestive heart failure. Dr. Weber after examining the patient and reviewing his records feels that it is permissible for him to undergo surgery at a low to moderate, but acceptable risk. 2. The patient's potassium is a little low this morning. It is 3.4. We will give 10 mEq run of potassium. 3. Continue on beta lavelle. Will hold Dyazide for now because his blood pressure is in the low 100s and he is not eating and drinking, but he is maintenance on IV fluids. Thank you very much for allowing us to assist in his care. We will follow this patient closely. He will get beta lavelle preoperatively. Further recommending pending per Dr. Weber. Dictated by... Lili Lemus A.P.R.N. for George Jackson TD: 09/23/2016 10:45 JOB #: [id number] CC: Irwin Ruano M.D. [facility] CONSULTATION REPORT Page 1 of 1 X Lili Lemus APRN CONSULTATION REPORT
--- NOTE | ~2016-09-22 | A ---
[facility] Nutrition Therapy DATE: 09/23/16 Patient: SANDY BARTONBRUCE Physician: DAYANARA Address: [address] [place] [address] Room/Bed: [address] [place] [address], Zip: [place] [address] Admit Date: 09/22/16 Date of : [birth year] Height: 5 8 Weight: 158 72 NUTRITIONAL ASSESSMENT: REASON: SEEING PT FOR 2 NUTRITIONAL RISK PTS RE: UNINTENTIONAL WEIGHT LOSS DX: 89 Y.O. MALE ADMITTED FOR IRON-DEFICIENCY ANEMIA, WEIGHT LOSS PMH: PARKINSONISM, HTN, ANEMIA, GOUT, HYPERLIPIDEMIA, PROSTATE CANCER Anthropometrics: 5'9", WT: 145# (PER PT) (66 KG), BMI 21 PER MEDITECH, WT: 158# (72 KG) Labs: K+ 3.4, CA++ 7.9, ALB 2.6 Meds: TOPROL, NEUROTIN, ZYLOPRIM, NACL, FLOMAX I/O & Bowel function: 785/50 Skin Integrity: WNL, NO EDEMA. Assessment: CHART REVIEWED, EVENTS NOTED. SEEING PT FOR 2 PTS RE: UNINTENTIONAL WEIGHT LOSS. PT IS CURRENTLY NPO FOR PROCEDURE OCCURING LATER TODAY 09/23. PT REPORTS HIS UBW BEFORE BECOMING ILL BEING 170#, AND HE REPORTS HIS CURRENT WEIGHT TO BE 145#, INDICATING A WEIGHT LOSS OF 25# OVER THE LAST 2-3 MONTHS. PT INDICATES THIS WEIGHT LOSS IS DUE TO A POOR APPETITE, UPSET STOMACH, AND POSSIBLE MALABSORPTION. PER FAMILY, A MASS WAS FOUND IN THE PT'S COLON, AND IS BEING REMOVED. THE PT REPORTS HAVING A GOOD APPETITE AND PO INTAKE BEFORE BECOMING ILL, CONSUMING 2-[address] ENCOURAGED PT TO CONSUME 3 MEALS A DAY, OR SEVERAL SMALL MEALS, ONCE PROCEDURE IS COMPLETE AND PT IS BACK TO REGULAR DIET. RD WILL ORDER SUPPLEMENTS AFTER PROCEDURE WHEN PT'S DIET ADVANCES. Dx: UNINTENTIONAL WEIGHT LOSS R/T POOR APPETITE, MALABSORPTION, CURRENT CONDITION AEB PT REPORTED 25# WEIGHT LOSS OVER 2-3 MONTHS (15% SEVERE WEIGHT LOSS NOTED). Intervention: 1. NPO FOR PROCEDURE 2. SUPPLEMENTS ONCE DIET ADVANCES Monitoring, Evaluation and Goals: 1. WEIGHT; PREVENT FURTHER UNINTENTIONAL WEIGHT LOSS; PROMOTE WEIGHT MAINTENANCE 2. ORAL INTAKE; ONCE DIET ADVANCES, TOLERATE >50% OF ALL MEALS AND SUPPLEMENTS 3. GI FUNCTION; PROMOTE REGULAR GI FUNCTION Recommendations: 1. ONCE MEDICALLY FEASIBLE, BEGIN WITH CLEAR LIQUID DIET, ADVANCE DIET TO LOW-FIBER/GI [facility] Nutrition Therapy DATE: 09/23/16 Patient: SANDY FRAUSTO Physician: DAYANARA Address: [address] [place] [address] Room/Bed: [address] [place] [address], Zip: [place] [address] Admit Date: 09/22/16 Date of : [birth year]/26 Height: 5 8 Weight: 158 72 SOFT POST-SURGERY. 2. ONCE DIET ADVANCES, ORDER MAGIC CUP VANILLA BID AND ENSURE STRAW BID 3. ONCE DIET ADVANCES, ENCOURAGE ADEQUATE PO INTAKE RD WILL F/U PER PROTOCOL PT IS AT MODERATE NUTRITIONAL RISK. Respectfully, KAYLA TAI, DIRECTOR OF DEVELOPMENT LADY CACERES MS, RD, LD Food and Nutritional Services [facility] cc: client file
--- NOTE | ~2016-09-22 | FU ---
[facility] Nutrition Therapy DATE: 09/26/16 Patient: SANDY Martin MONTANABRUCE Physician: DAYANARA Address: [address] [place] [address] Room/Bed: [address] [place] [address], Zip: [place] [address] Admit Date: 09/22/16 Date of : [birth year] Height: 5 8 Weight: 158 72 NUTRITION MONITORING/FOLLOW-UP: Reason: Nutrition follow-up Admitting Dx: 89 y/o male admitted with SANGEETHA and weight loss, found to have Stage III colon cancer Anthropometrics: Ht: 69", admission wt: 158 lbs, current wt: no updated weight, BMI: 23 (normal) Labs: Na 134, glucose 140, K/Mg/Phos WNL Meds: Kcl, PPI, Zofran prn, D5NS w/ Kcl @ 75 ml/hr, prn pain meds GI: Last BM 09/25, no N/V/D documented Skin: Closed surgical incision abdomen, no edema Assessment: Chart reviewed, events noted. POD #3 exlap with R hemicolectomy due to Stage III colon cancer/mass. Patient on regular diet 09/24 which was then changed to clear liquids on 09/25 and then full liquids the same day, has been on full liquid diet since yesterday 09/25. No new weight available, generalized weakness noted. Patient is sleeping and family is speaking with discharge CM at time of visit to room. Initial RD assessment reviewed, will order ONS as recommended. Patient is currently on room air. See nutrition dx, goals and recs as stated below. Plan is home with HH vs rehab depending on PT recs. Will continue to follow hospital course. Dx: Unintentional weight loss r/t decreased appetite, malabsorption, clinical condition AEB 25 lb weight loss in 2-3 months (15% body weight loss; severe) - ACTIVE Intervention: ONS, obtain current weight Monitoring, Evaluation and Goals: 1. Tolerance of diet advancement with oral intake > 50% of meals - IN PROGRESS 2. Maintain current weight status/prevent further loss - UNMEASURED (no new weight) 3. GI function WNL - IN PROGRESS No new goals to add at this time Monitor: Per protocol, criteria to determine if above goals met Recommendations: [facility] Nutrition Therapy DATE: 09/26/16 Patient: SANDY FRAUSTO Physician: DAYANARA Address: [address] [place] [address] Room/Bed: [address] [place] [address], Zip: [place] [address] Admit Date: 09/22/16 Date of : [birth year]/26 Height: 5 8 Weight: 158 72 1. Once tolerating full liquid diet x 48 hours advance to GI soft/low residue diet. Once tolerating GI soft can advance to high calorie/high protein diet to meet nutritional needs. Appreciate staff/family to encourage adequate oral intake at each meal and assist as needed. 2. RD ordering oral nutrition supplements: vanilla magic cup BID + strawberry Ensure Enlive BID to increase oral kcal/protein intake and prevent further unintentional weight loss. The patient has increased nutrient needs. 3. Please obtain current weight and enter into Affibody, weigh q 3 days for monitoring purposes as the patient has lost 15% body weight in past 2-3 months. Status: Moderate nutrition risk Respectfully, Sharon Aaron RD, LD Food and Nutritional Services [facility] cc: client file
--- NOTE | ~2016-09-22 | XA166 ---
[facility] A Service of [facility] & [facility] RADIOLOGY TEXT RESULTS PATIENT: SANDY FRAUSTO LOCATION: [facility] 47 : [birth year] UNIT #: [id number] AGE: [address]: Terry Bustillo MD SEX: M ORDER DR: [id number] [facility] [address] [facility]. [place], [place] [address] [id number] MR#: [id number] Acc #: [id number] NAME: SANDY FRAUSTO. : 1925 SEX: M STUDY DATE/TIME: 10/03/2016 8:17 UNIT: [facility] ROOM: [facility] STUDY DESCRIPTION: XA PICC Line Placement WO Port Attending Physician: Terry Bustillo M.D. Ordering Physician: Gabe Bush M.D. Primary Care Physician: Irwin Ruano M.D. MEDICAL IMAGING REPORT This report is preliminary unless electronic signature is present EXAM Right-sided PICC line placement under ultrasound fluoroscopy. HISTORY Long-term IV access for antibiotic therapy. PRE-PROCEDURE The procedure was explained to the patient and/or patient inbound sales representative including risks, benefits, potential complications and potential for alternative forms of treatment. Informed consent was obtained, and prior to initiating the procedure a formal timeout procedure was performed. PROCEDURE Using full standard sterile barrier technique, including caps, gowns, gloves, masks, as well as sterile skin preparation and standard sterile draping, the right arm was prepped and draped in the usual fashion, and real-time sterile ultrasound guidance was used to localize an arm vein and to confirm vessel patency. A hard copy ultrasound image was recorded. After local anesthesia with 1% Xylocaine, the vein was punctured using real-time sterile ultrasound guidance, and an 0.018 guidewire was advanced into the superior vena cava, using fluoroscopic guidance. A 5-Divehi dual-lumen PICC was then measured and deployed with the tip positioned in the superior vena cava. Trim length 36 cm. The position of the line was documented with a radiographic image. The line was secured in place with an adhesive dressing and an antibiotic patch was applied. Total fluoro time was 0.3 minutes. A single fluoroscopic spot image was obtained. IMPRESSION 1. Successful placement of a 5-Divehi dual-lumen PowerPICC via the right arm under ultrasound and fluoroscopic guidance. The tip of the PICC is in good position in the superior vena cava. [facility]. [facility] A Service of [facility] RADIOLOGY TEXT RESULTS PATIENT: SANDY FRAUSTO LOCATION: [facility]9- : [birth year] UNIT #: [id number] AGE: [address]: Terry Bustillo MD SEX: M ORDER DR: 2. A single fluoroscopic spot image was obtained. Dictated by... Linwood Kelly M.D. THIS IS AN ELECTRONICALLY VERIFIED REPORT Linwood Kelly M.D. at 10/06/2016 5:12 PM [place] TD: 10/03/2016 12:23 JOB #: [id number] MEDICAL IMAGING REPORT Page 1 of 1 COPY
--- NOTE | ~2016-09-22 | HP ---
Unit #: [id number] #: [id number] Patient: SANDY MEANS [id number] [address] [place], [place] [address] [id number] O MR#: [id number] NAME: SANDY MEANS ROOM: Age: 89 Sex: M Admission Date: 09/22/2016 : 1925 Attending Physician: Terry Bustillo M.D. Primary Care Physician: Irwin Ruano M.D. HISTORY AND PHYSICAL REASON FOR ADMISSION Patient has been found to have a nearly obstructing right-sided colon cancer at the junction of cecum and ascending colon and needs a right hemicolectomy. HISTORY OF PRESENT ILLNESS Mr. Means is a very pleasant 89-year-old white gentleman. He is fairly independent in all activities of daily living. In fact he had been taking care of his who was recently diagnosed with carcinoma of the head of the pancreas with obstructive jaundice as well as a sigmoid cancer at the same time. He was mostly taking care of her and not bothering to look after himself. He has lost about 30 pounds before we saw him in the office and had a palpable mass in the right lower quadrant of the abdomen along with increasing fatigue and constipation. He presents today for upper endoscopy and a colonoscopy and was found to have an exophytic, ulcerated, friable, circumferential nearly obstructing mass at the junction of cecum and proximal ascending colon. PAST MEDICAL HISTORY His past medical history is significant for a history of parkinsonism, hypertension and gout as well as benign prostatic hypertrophy. PAST SURGICAL HISTORY His surgeries have included a triple hernia repair, tonsillectomy. MEDICATIONS His medications include: 1. Flomax 0.4 mg p.o. daily. 2. Allopurinol 300 mg p.o. daily. 3. Triamterene and hydrochlorothiazide 37.5/25 mg one p.o. daily. 4. ICaps vitamin one tablet daily. 5. Aspirin 81 mg p.o. daily. 6. Carbidopa and levodopa 25/100 mg ODT one p.o. t.i.d. 7. Neurontin 100 mg q.h.s. 8. Metoprolol succinate 25 mg p.o. q.h.s. ALLERGIES Penicillin. SOCIAL HISTORY Patient is fairly independent in all the activities of his daily living. He does not smoke and drinks very occasionally. Unit #: [id number] #: [id number] Patient: SANDY MEANS FAMILY HISTORY None of colon or pancreatic cancer or liver disease. REVIEW OF SYSTEMS A detailed review of organ systems does not reveal any fever, chills, rigors. Has history of substantial weight loss as mentioned above. No history of cough, expectoration, hemoptysis. No history of headache, seizure, chest pain or syncope. No history of dysuria, hematuria or pyuria. No focal seizures or extremity weakness. Patient does have generalized weakness and fatigue. PHYSICAL EXAMINATION GENERAL: On examination he is awake, alert and oriented and appears somewhat rundown. His weight is 65.3 kg and BMI is 21. VITAL SIGNS: His pulse is 70 per minute and regular, respiratory rate is 16, blood pressure 123/56, temperature is 98.3, oxygen saturation 98% on room air. HEENT: He has mild pallor. There being no icterus or lymphadenopathy EXTREMITIES: No peripheral edema. CARDIOVASCULAR EXAMINATION: Normal heart sounds. No murmurs. LUNGS: Auscultation of the lungs reveals normal breath sounds with good air entry. ABDOMEN: There being palpable mass in the right lower quadrant of the abdomen which is firm, smooth, nontender. Liver and spleen not palpable. Bowel sounds normal. DIAGNOSTIC STUDIES LABORATORY EVALUATION: Labs have been drawn and are pending. CLINICAL IMPRESSION Patient with proximal ascending colon/cecal adenocarcinoma, requires right hemicolectomy. He is therefore being admitted for surgery. Will also obtain cardiac clearance prior to the examination, also do blood type and screen. Lastly obtain CEA level, CBC and CMP. Patient will be seen by Surgical Service and Cardiology either today or tomorrow morning. The above plan was discussed with the patient and his two daughters and they were reassured. Dictated by George King TD: 09/22/2016 18:31 JOB #: [id number] Unit #: [id number] #: [id number] Patient: SANDY MEANS HISTORY AND PHYSICAL Page 1 of 1 X Terry Bustillo MD X HISTORY AND PHYSICAL
--- NOTE | ~2016-09-22 | HP ---
Unit #: [id number] #: [id number] Patient: SANDY MEANS [id number] [place] [id number] [facility]. [place], [place] [address] [id number] I MR#: [id number] NAME: SANDY MEANS ROOM: 476 Age: 89 Sex: M Admission Date: 09/22/2016 : 1925 Attending Physician: Terry Bustillo M.D. Primary Care Physician: Irwin Ruano M.D. HISTORY AND PHYSICAL HISTORY AND EXAM Mr. Means is an 89-year-old gentleman who was doing well in until after [place] when he started feeling weak and also he developed some lightheadedness. He was seen by Dr. Bustillo in the office who felt a mass on examination and got his outpatient CT scan. The CT scan showed a circumferential mass in the ascending colon with post jolene involvement but a normal liver. He was brought in yesterday where he underwent colonoscopy, which confirmed a near obstructing mass in the ascending colon. He is noted to have some iron deficiency anemia, was given a unit of blood and the patient states that he feels much better after receiving a unit of blood. PAST MEDICAL HISTORY Prostate cancer treated with radiation, hypertension, essential tremor, macular degeneration. She had a previous tonsillectomy. He has gout. ALLERGIES He is allergic to penicillin. HOME MEDICATIONS Include Flomax, allopurinol, triamterene, hydrochlorothiazide. He takes a vitamin specific for macular degeneration, baby aspirin daily, carbidopa, levodopa, Neurontin for neuropathy and metoprolol. FAMILY HISTORY His mother had an gynecological cancer, otherwise he is unaware of any chronic or inheritable diseases. SOCIAL HISTORY Nonsmoker and nondrinker. Lives at home and takes care of his elderly and ill . REVIEW OF SYSTEMS He denied any gross blood per rectum. PHYSICAL EXAMINATION VITAL SIGNS: Temperature is 98.7, pulse 71, respirations 14, blood pressure 114/45. GENERAL: He is hard of hearing but does well with his hearing aids, awake, alert and oriented in all spheres. HEENT: Unremarkable. CARDIAC: Regular rhythm. LUNGS: Clear. ABDOMEN: Nondistended but he does have palpable fullness in the right mid Unit #: [id number] #: [id number] Patient: SANDY MEANS abdomen. It is tender but there is no rebound. EXTREMITIES: No edema. NEUROLOGIC: Gross intact. No skin rashes or lesions. It should be noted on his neurological exam he has what appears to be an essential tremor. DIAGNOSTIC STUDIES LABORATORY STUDIES: CEA is 4.5. Comprehensive metabolic panel is unremarkable. Hemoglobin 8.6 with an MCV of 71, white count 8,900, platelets 855,000. CARDIOLOGY STUDIES: EKG is normal sinus rhythm with occasional PAC and left bundle branch block. IMAGING STUDIES: CT scan is discussed. ASSESSMENT AND PLAN 89-year-old gentleman with an ascending colon near obstructing mass consistent with colon cancer. He does have associated iron deficiency anemia that was symptomatic and improved with transfusion. Cardiology has been asked to see the patient for clearance but imagine that they are going to clear him. I discussed exploratory laparotomy, right hemicolectomy, including risks, benefits, complications and postoperative expectations with the patient and his daughter. They understand and agree to proceed. We add him on as soon as possible. Dictated by Gabe Bush M.D. ALTON/key TD: 09/23/2016 07:48 JOB #: [id number] HISTORY AND PHYSICAL Page 1 of 1 X Gabe Bush MD HISTORY AND PHYSICAL
--- NOTE | ~2016-09-22 | OR ---
Unit #: [id number] #: [id number] Patient: SANDY MEANS [id number] [address] [place], [place] [address] [id number] I MR#: [id number] NAME: SANDY MEANS ROOM: 479 Date of Procedure: 10/02/2016 Admission Date: 09/22/2016 Surgeon: Gabe Bush M.D. : 1925 Attending Physician: Terry Bustillo M.D. Primary Care Physician: Irwin Ruano M.D. OPERATIVE REPORT PREOPERATIVE DIAGNOSIS Fascial dehiscence. POSTOPERATIVE DIAGNOSIS Fascial dehiscence. PROCEDURES PERFORMED Exploratory laparotomy, fascial closure. ANESTHESIA General endotracheal anesthesia. ESTIMATED BLOOD LOSS Less than 10 mL. INDICATIONS FOR PROCEDURE Mr. Means is a 89-year-old gentleman who previously undergone a right hemicolectomy for colon cancer and was in stable condition, but this morning when he walked to the bathroom, he had a sudden drainage of a large amount of serous fluid through his staple line. I examined the patient at the bedside and he had an apparent localized fascial dehiscence. The patient's dehiscence is worsened by his recent vomiting and his initial poor nutrition from weight loss from his cancer. DESCRIPTION OF PROCEDURE The patient was transported from his hospital room to the operating room, and after induction of general endotracheal anesthesia, his abdominal binder was removed and he was prepped and draped in the usual sterile fashion. His mike were removed and I opened the skin in the central portion of the abdomen. It was obvious where the suture had broken, so I removed all of the previously placed sutures. I gently elevated the abdominal wall from the underlying bowel. There was no evidence of any intra-abdominal pathology or abscess. The bowel was healthy and viable. He did have some ascites, which I removed using a pool-tip suction device. And once we had completely cleared the anterior abdominal wall of any adhesions, we irrigated the peritoneal cavity with a liter of bacitracin solution. After that, a visceral retractor was placed into the peritoneal cavity and the fascia was reclosed using #1 Vicryl closely spaced sutures. When the sutures were pulled to be tied, they held very well with no failure of any of the sutures. Once the peritoneal cavity had been reclosed, the sponges and needle counts were correct. The soft tissue was irrigated with bacitracin and Betadine. The skin was loosely approximated Unit #: [id number] #: [id number] Patient: SANDY MEANS with sterile skin mike and a dry sterile dressing was placed. A Garcia catheter was placed during the procedure, so we can monitor postoperative urine output, and a new abdominal binder has been ordered. The patient tolerated the procedure well and was transported to recovery in stable condition. Findings and postoperative expectations will be discussed with his family. Dictated by... George Pisano/yen TD: 10/03/2016 06:02 JOB #: [id number] OPERATIVE REPORT Page 1 of 1 X Gabe Bush MD PROCEDURE OPERATIVE NOTE
--- NOTE | ~2016-09-22 | CO ---
Unit #: [id number] #: [id number] Patient: SANDY FRAUSTO [id number] [address] [address] [id number] I MR#: [id number] NAME: SANDY FRAUSTO. ROOM: 476 Age: 89 Sex: M Admission Date: 09/22/2016 : 1925 Attending Physician: Terry Bustillo M.D. Primary Care Physician: Irwin Ruano M.D. Consultation Date: 09/26/2016 CONSULTATION REPORT REASON FOR EVALUATION Patient with colon cancer and anemia. Please evaluate. HISTORY OF PRESENT ILLNESS The patient is an 89-year-old gentleman who initially was drowsy, but woke up and made perfect sense. He tells me that he is nauseated. He knows the diagnosis. He is ready to listen about treatment, but is reluctant about any aggressive chemo or radiation therapy. His is with him in the room and the had multiple other cancers and declined chemotherapy. PAST MEDICAL HISTORY 1. Mainly remarkable for benign prostatic hypertrophy. 2. Gout. 3. Hypertension. 4. Parkinson. 5. Macular degeneration. 6. No past history of any other cancers. SOCIAL HISTORY The patient is . The , as stated above, has a history of cancers from which she is recuperating, but declined chemotherapy and radiation therapy. FAMILY HISTORY Negative for cluster of cancers. ALLERGIES Penicillin. CURRENT MEDICATIONS 1. Aspirin. 2. Vitamin. 3. Eyedrops. 4. Allopurinol. 5. Flomax. 6. Carbidopa. 7. Neurontin. 8. Metoprolol. REVIEW OF SYSTEMS Limited. He was nauseated. I did not pursue an extensive review of systems. Essentially unremarkable. PHYSICAL EXAMINATION Unit #: [id number] #: [id number] Patient: SANDY FRAUSTO GENERAL: Awake, alert. Moderately pale. LYMPH: No palpable nodes. LUNGS: Clear. ABDOMEN: Evidence of recent surgery. NEUROLOGIC: PASSENGER BOOKING CLERK grossly intact. RECTAL: Not performed. DIAGNOSTIC STUDIES LABORATORY: Glucose 140, BUN 8, creatinine 0.7, sodium 134, potassium 4.1, chloride 104, CO2 27, anion gap 4, hemoglobin 8.5, hematocrit 27, white count 6800, MCV 70.2, platelets 262,000. CEA 4.5. B12 286. ASSESSMENT 1. Pathology was reviewed. It is a large lesion, about 9 cm, poorly differentiated. One lymph node positive with no extra capsular extension, making him a T3, N1a, 3a disease. 2. Macrocytic anemia. Iron deficiency. The patient used to be on ferrous sulfate prior to surgery. PLAN 1. Continue the ferrous sulfate when he is able to take p.o. 2. Aggressive ambulation, followed by rehab. 3. I will schedule an appointment for him two to three weeks as an outpatient. 4. Do a PET scan. 5. Most probably, due to his reluctance about aggressive chemotherapy, I am going to place him on Xeloda, which when tolerated well is accepted in his age group with minimal toxicity. Will avoid folfox, which has fairly toxic drugs, especially with neuropathy. All of this was discussed with the patient and the family. All are in agreement. I have scheduled him an appointment to see us. Please continue the ferrous sulfate when he is able to tolerate p.o. Will check the ferritin level as an outpatient. Dictated by... Blue Palacio M.D. KEKE/jennie TD: 09/26/2016 16:05 JOB #: [id number] CONSULTATION REPORT Page 1 of 1 X Blue Palacio MD CONSULTATION REPORT
--- NOTE | ~2016-09-22 | CT4 ---
[facility] A Service of [facility] & [facility] RADIOLOGY TEXT RESULTS PATIENT: SANDY FRAUSTO LOCATION: [place] [address]- : [birth year] UNIT #: [id number] AGE: [address]: Terry Bustillo MD SEX: M ORDER DR: [id number] [facility] [address] [place], [place] [address] [id number] I MR#: [id number] Acc #: [id number] NAME: SANDY FRAUSTO : 1925 SEX: M STUDY DATE/TIME: 09/29/2016918 UNIT: [facility] ROOM: [facility] STUDY DESCRIPTION: CT Abd and Pelv Wo Cont Attending Physician: Terry Bustillo M.D. Ordering Physician: Edil Stubbs M.D. Primary Care Physician: Irwin Ruano M.D. MEDICAL IMAGING REPORT This report is preliminary unless electronic signature is present EXAM CT abdomen and pelvis without contrast, 09/29/2016, 0919 hours. CLINICAL HISTORY 89-year-old man with newly diagnosed colon cancer of the ascending colon. Mid abdominal pain around surgical site today. Surgery 09/23/2016, possible dehiscence. COMPARISON CT abdomen 09/16/2016, abdominal film 09/27/2016. TECHNIQUE Helical noncontrasted images were obtained from the lung bases through the pubic symphysis without oral or intravenous contrast. Sagittal and coronal reconstructions were performed. Total exam DLP 997 mGy-cm. This CT exam was performed with one or more of the following radiation dose reduction techniques: automatic exposure control, adjustment of mA and/or kV according to patient size, and iterative reconstruction. FINDINGS Images through the lung bases demonstrate new left basilar density and a moderate left effusion with trace right effusion and right basilar density. Basilar changes are likely atelectatic with new bilateral postoperative effusions. Noncontrasted images through the abdomen demonstrate a normal appearance to the liver, spleen, pancreas, gallbladder, bile ducts, and adrenal glands. Noncontrasted kidneys are normal. There is atherosclerotic change throughout the abdominal aorta which measures 3 cm which is borderline for aneurysm. Patient is postoperative since the prior study. There are vertical STS. [facility] A Service of [facility] & [facility] RADIOLOGY TEXT RESULTS PATIENT: SANDY FRAUSTO LOCATION: [facility] [id number] : [birth year] UNIT #: [id number] AGE: [address]: Terry Bustillo MD SEX: M ORDER DR: mike in the midline abdomen with some subcutaneous air just deep to the mike in the cephalad portion. The fascia appears closed with the exception of the most caudal aspect of the incision where there is irregularity in the linear fascial line and a small amount of fat protruding through which could represent a small focal area of dehiscence measuring just a few millimeters in size, best seen on image 69. This contains only a very small amount of fat. There is subcutaneous edema in the abdominal wall and in the left inguinal region and prepubic region, left greater than right, which is new from the prior study of uncertain etiology. There appears to be edema over the left extremity. Correlate with any symptoms in the left leg or possible DVT. The stomach is distended and fluid-filled. There is fluid distension of multiple loops of small bowel. There is postoperative change at the right colon with a fairly normal appearance to an anastomoses. There is very minimal adjacent linear injection of the fat, likely postoperative. There is still some free air in the abdomen, presumably postoperative. There is no abscess seen and no drainable fluid collection. IMPRESSION 1. Interval surgery since 09/16/2016 with vertical midline mike present. There is no subcutaneous fluid collection. The very caudal aspect of the incision just deep to the most caudal mike demonstrate some irregularity of the fascia with a very small amount of fat protruding which could represent a small focal dehiscence of the fascia. The skin is closed. There is no fluid collection or bowel involvement. 2. There is change of right colectomy with an anastomosis in the right flank having a normal appearance. There is no drainable fluid collection or abscess. There is fluid distension of multiple loops of small bowel with air-fluid levels likely adynamic ileus. There is increased fluid in the colon as well. 3. Findings were discussed by telephone with Dr. Stubbs at the time of this dictation. Dictated by... Veronika Traore M.D. THIS IS AN ELECTRONICALLY VERIFIED REPORT Veronika Traore M.D. at 09/29/2016 7:31 PM SARAH/akilah TD: 09/29/2016 12:05 JOB #: [id number] MEDICAL IMAGING REPORT Page 1 of 1 COPY
--- NOTE | ~2016-09-22 | FU ---
[facility] Nutrition Therapy DATE: 10/06/16 Patient: SANDY Martin MONTANABRUCE Physician: DAYANARA Address: [address] [place] [address] Room/Bed: [address] [place] [address], Zip: [place] [address] Admit Date: 09/22/16 Date of : [birth year] Height: 5 8 Weight: 160 73 NUTRITION MONITORING/FOLLOW-UP: Reason: Nutrition follow up Anthropometrics: Ht" 68" Adm wt: 71 kg BMI: 23.8 Wt 10/06: 73 kg Family reported that the pt's weight is ~68 kg Labs: Na+ 134 Ca++ 7.2 Alb 1.6 ALT 6 Phos 2.4 Accuchecks 83-114 Prealb 8.1 Meds: TPN 25% dextrose- currently off (runs @ 87 mL/hr x 12 hrs from 10P-10A) Intralipid q 48 hrs, phenergan, zofran, megace oral, protonix I&O's: 2488/402, last BM 10/05, abdomen soft with positive bowel sounds per MD note Skin: Abdominal wound dehiscence/ infection Bruise BUE Estimated Nutrition Needs: (Used 68 kg for calculation) 8629-0692 kcals (25-30 kcals/kg) 82-109 grams protein (1.2-1.6 grams/kg) Diet: Mechanical ground/ soft Assessment: Chart reviewed, events noted. Pt had a exploratory laparatomy and right darien-colectomy on 09/23, and exploratory laparatomy and fascial closure d/t wound dehiscence on 10/02. Pt has been receiving TPN since 10/03. TPN (25% dextrose) is currently cycling for 12 hrs from 10P-10A @ 87 mL/hr with 25% dextrose, which is providing 1095 kcals (887 kcals dextrose), 52 grams protein. Lipids are cycling q 48 hrs, which provides 500 additional kcals on days cycled. RD discussed TPN regimen with pharmacy, recommending to continue current regimen if pt continues to be on TPN. RD spoke with the pt, his , and his son in the pt's room. Pt denies having any n/v or major abdominal pain at this time. Family reports that the pt has been eating ~50% of meals, and that at least one family member is always with him while he eats. Pt and his family report that the mechanical ground/ soft food is not appetizing to him, and that his intake would improve if his food was more solid or in regular form. RD discussed this with RN. RD reviewed supplement options with the pt, and he is willing to try Magic Cup, declined Ensure pudding and Ensure Enlive. RD stressed the importance of adequate protein intake for abdominal wound healing, and informed the pt that if his diet is advanced, he will need to make sure to chew his food slowly and thoroughly. Pt and his family voiced [facility] Nutrition Therapy DATE: 10/06/16 Patient: SANDY FRAUSTO Physician: DAYANARA Address: [address] [place] [address] Room/Bed: [address] [place] [address], Zip: [place] [address] Admit Date: 09/22/16 Date of : [birth year] Height: 5 8 Weight: 160 73 understanding, and denied having any further questions regarding the pt's diet/ nutrition. Nutrition diagnoses remain, see updates. Dx: 1) Unintentional weight loss RT decreased appetite, malabsorption, recent bowel surgery AEB 35# weight loss in 2-3 months (15% body weight loss)- ACTIVE 2) Inadequate protein-energy intake RT decreased appetite, recent bowel surgery AEB ~50% intake of meals reported by pt and family- ACTIVE/ IMPROVED Intervention: 1. Advanced to regular foods as tolerated 2. Magic Cup TID Monitoring, Evaluation and Goals: 1. Tolerance of diet advancement with oral intake >50% of meals- NOT MET/ IN PROGRESS (CONTINUE) 2. Maintain current weight/ prevent weight loss- IN PROGRESS (CONTINUE) 3. GI function WNL- IN PROGRESS/ CONTINUE NEW GOALS (IN ADDITION TO ABOVE): 1. Oral intake; advance to regular foods/ tolerate >50% of meals 2. Improve labs; Na+, Ca++, Phos, glucose 3. GI; promote regular GI function 4. Skin; promote healing Recommendations: 1. Recommend discontinuing TPN, as the pt's gut seems to be functioning with tolerance of PO intake. If TPN is continued, continue current regimen + lipids as ordered by pharmacy. Nutrition provided by this regimen is noted above and is meeting ~60% of the pt's estimated nutrient needs. 2. Recommend advancing the pt to a regular consistency, high protein-high calorie diet with solid food as tolerated. Pt and family both report that the pt's nutritional intake would improve if his food was not ground/ soft. RD encouraged the pt to chew his food well and eat slowly. 3. Magic Cup (orange vanilla) TID with meals for supplemental nutrition. 4. Appreciate staff and family encouraging and assisting with nutritional intake of meals and supplements. 5. If the pt's intake does not improve to greater than 50% of meals, consider [facility] Nutrition Therapy DATE: 10/06/16 Patient: SANDY FRAUSTO Physician: DAYANARA Address: [address] [place] [address] Room/Bed: [address] [place] [address], Zip: [place] [address] Admit Date: 09/22/16 Date of : [birth year] Height: 5 8 Weight: 160 73 discontinuing TPN and starting nocturnal enteral nutrition to meet 50% of his nutritional needs with Vital 1.5 @ 15 mL/hr x 12 hrs (from 8P-8A). Increase by 10 mL q 6 hrs as tolerated to goal of 60 mL/hr x 12 hrs. This would provide an additional: 1080 kcals/ 49 grams protein/ 547 mL free H20 Status: Pt is at moderate nutritional risk. RD will continue to follow. Respectfully, BENJAMIN MADRID RD, LD Food and Nutritional Services [facility] cc: client file
--- NOTE | ~2016-09-22 | EKG ---
PATIENT: SANDY FRAUSTO UNIT #: [id number] Ventricular Rate: 110 BPM Atrial Rate: 113 BPM P-R Interval: 192 ms QRS Duration: 126 ms Q-T Interval: 358 ms QTC Calculation(Bezet): 484 ms Calculated R [place]: -35 degrees Calculated T [place]: 87 degrees Diagnosis Line: Sinus tachycardia with Premature atrial complexes Diagnosis Line: Left axis deviation Diagnosis Line: Left bundle branch block Diagnosis Line: Possible Lateral infarct , age undetermined Diagnosis Line: Abnormal ECG Diagnosis Line: When compared with ECG of 22-SEP-2016 18:38, Diagnosis Line: Vent. rate has increased BY 38 BPM Diagnosis Line: Nonspecific T wave abnormality no longer evident Diagnosis Line: in Lateral leads Diagnosis Line: Confirmed by BRENNA CHAMPAGNE MD ([id number]) on 10/01/2016 Diagnosis Line: 7:33:45 AM INTERPRETING MD: MAHI WEBB
--- NOTE | ~2016-09-22 | EKG ---
PATIENT: SANDY FRAUSTO UNIT #: [id number] Ventricular Rate: 128 BPM Atrial Rate: 117 BPM P-R Interval: 160 ms QRS Duration: 122 ms Q-T Interval: 348 ms QTC Calculation(Bezet): 508 ms Calculated R [place]: 0 degrees Calculated T Baker: 133 degrees Diagnosis Line: Sinus tachycardia with Premature atrial complexes Diagnosis Line: Left bundle branch block Diagnosis Line: Abnormal ECG Diagnosis Line: When compared with ECG of 01-OCT-2016 06:25, Diagnosis Line: QRS axis Shifted left Diagnosis Line: T wave inversion no longer evident in Inferior Diagnosis Line: leads Diagnosis Line: T wave inversion now evident in Lateral leads Diagnosis Line: Confirmed by MARICEL MYRICK MD ([id number]) on Diagnosis Line: 10/09/2016 7:34:36 AM INTERPRETING : KELLI
--- NOTE | ~2016-09-22 | US84 ---
[id number] [facility]. [facility] [address] [place], [place] [address] [id number] I MR#: [id number] Acc #: [id number] NAME: SANDY FRAUSTO : 1925 SEX: M STUDY DATE/TIME: 09/29/2016 11:35 UNIT: [facility] ROOM: [id number] STUDY DESCRIPTION: US LE Veins Complete Aristeo Stdy Attending Physician: Terry Bustillo M.D. Ordering Physician: Edil Stubbs M.D. Primary Care Physician: Irwin Ruano M.D. MEDICAL IMAGING REPORT This report is preliminary unless electronic signature is present EXAM Right lower extremity venous duplex. HISTORY Lower extremity swelling. Rule out DVT. FINDINGS Duplex imaging of the lower extremities was performed. The right common femoral vein is patient. The femoral vein in the distal thigh on the right side appears to be partially compressible with flow noted, however. It is patent in the proximal and the midportion. The popliteal and tibial veins and peroneal veins on the right side are patent and compressible with normal venous filling. On the left side, the femoral, popliteal, tibial and peroneal veins are compressible with normal venous filling in all the visualized veins. IMPRESSION The femoral vein in the distal thigh on the right side appears to be partially compressible and nonocclusive thrombosis cannot be excluded. The rest of the lower extremity on the right side is patent. On the left side, normal venous duplex exam is seen. If clinical suspicious persists, a repeat duplex on the right lower extremity is recommended in one week. Dictated by... Seymour Davila M.D. THIS IS AN ELECTRONICALLY VERIFIED REPORT Seymour Davila M.D. at 10/02/2016 10:59 AM /akilah TD: 09/29/2016 14:59 JOB #: [id number] MEDICAL IMAGING REPORT Page 1 of 1 COPY
[~2016-09-22 14:30] MED LIST changes: -ACETAMINOPHEN PO; -BACID PO; -ELIQUIS2.5 MG PO; -FERROUS SULFAT324 MG PO; -FLOMAX0.4 M1 PO; -FLORINEF0.1 M1 PO; -KCL PO; -LOMOTIL WHITE2.5 M1 PO; -MEGACE ORA40 MG/ML S PO; -ONDANSETRON ODT4 MG PO; -PRILOSEC PO; -SINEMET-25/1001 TA1 PO; -VANCOMYCIN HCL500 MG PO
[2016-09-22 16:48] LABS: BASOPHIL% 0.5 % (0-2.5); EOSINOPHIL# 0.1 X10e3 (0-0.7); HEMATOCRIT 27.5 % (38.0-50.0); HEMOGLOBIN 8.6 gm/dL (13.0-16.0); LYMPHOCYTE# 1.2 X10e3 (1.0-3.5); LYMPHOCYTE% 15.1 % (17.0-45.0); MEAN CELL VOLUME 68.4 FL (83-96); MEAN CORPUSCULAR HEMOGLOBIN 21.3 PG (28-34); MEAN CORPUSCULAR HGB CONC 31.1 g/dL (30-36); MEAN PLATELET VOLUME 6.5 FL (6.5-11.5); MONOCYTE# 0.6 X10e3 (0-1.0); MONOCYTE% 7.1 % (3.0-12.0); NEUTROPHIL# 6.3 X10e3 (1.5-7.1); NEUTROPHIL% 76.3 % (40-75); PLATELET COUNT 288 X10e3 (140-420); RED BLOOD COUNT 4.03 X10e (3.90-5.60); RED CELL DISTRIBUTION WIDTH 17.3 % (11.0-15.5); WHITE BLOOD COUNT 8.3 X10e3 (4.0-10.5)
[2016-09-22 16:54] LABS: DIFF IND NO
[2016-09-22 17:10] LABS: ALBUMIN SERUM 3.2 g/dL (3.5-5.0); BILIRUBIN,TOTAL 0.9 mg/dL (0.2-2.0); CALCIUM SERUM 8.6 mg/dL (8.4-10.2); CREATININE SERUM 0.8 mg/dL (0.6-1.4); GLOM FILT RATE Estimated 79.2 mL/min (>60); POTASSIUM 3.3 mmol/L (3.5-5.1); PROTEIN TOTAL SERUM 6.7 g/dL (6.0-8.3)
[2016-09-23 03:33] LABS: HEMATOCRIT 27.2 % (38.0-50.0); HEMOGLOBIN 8.6 gm/dL (13.0-16.0); MEAN CELL VOLUME 71.1 FL (83-96); MEAN CORPUSCULAR HEMOGLOBIN 22.5 PG (28-34); MEAN CORPUSCULAR HGB CONC 31.6 g/dL (30-36); MEAN PLATELET VOLUME 6.3 FL (6.5-11.5); RED BLOOD COUNT 3.83 X10e (3.90-5.60); RED CELL DISTRIBUTION WIDTH 18.8 % (11.0-15.5); WHITE BLOOD COUNT 8.9 X10e3 (4.0-10.5)
[2016-09-23 03:57] LABS: ALBUMIN SERUM 2.6 g/dL (3.5-5.0); BILIRUBIN,TOTAL 1.3 mg/dL (0.2-2.0); CALCIUM SERUM 7.9 mg/dL (8.4-10.2); CREATININE SERUM 0.6 mg/dL (0.6-1.4); GLOM FILT RATE Estimated 89.2 mL/min (>60); POTASSIUM 3.4 mmol/L (3.5-5.1); PROTEIN TOTAL SERUM 5.4 g/dL (6.0-8.3)
[2016-09-24 05:18] LABS: BASOPHIL% 0.4 % (0-2.5); EOSINOPHIL% 0.2 % (0.0-7.0); HEMATOCRIT 27.8 % (38.0-50.0); HEMOGLOBIN 8.7 gm/dL (13.0-16.0); LYMPHOCYTE# 0.9 X10e3 (1.0-3.5); LYMPHOCYTE% 9.5 % (17.0-45.0); MEAN CELL VOLUME 71.1 FL (83-96); MEAN CORPUSCULAR HEMOGLOBIN 22.3 PG (28-34); MEAN CORPUSCULAR HGB CONC 31.4 g/dL (30-36); MEAN PLATELET VOLUME 6.6 FL (6.5-11.5); MONOCYTE# 0.6 X10e3 (0-1.0); MONOCYTE% 6.3 % (3.0-12.0); NEUTROPHIL# 8.3 X10e3 (1.5-7.1); NEUTROPHIL% 83.6 % (40-75); PLATELET COUNT 250 X10e3 (140-420); RED BLOOD COUNT 3.91 X10e (3.90-5.60); WHITE BLOOD COUNT 9.9 X10e3 (4.0-10.5)
[2016-09-24 05:19] LABS: DIFF IND NO
[2016-09-24 05:34] LABS: BUN/CREATININE RATIO 12.72; CALCIUM SERUM 7.9 mg/dL (8.4-10.2); CREATININE SERUM 1.1 mg/dL (0.6-1.4); GLOM FILT RATE Estimated 59.2 mL/min (>60); MAGNESIUM 1.8 mg/dL (1.6-3.0); POTASSIUM 4.1 mmol/L (3.5-5.1)
[2016-09-25 03:50] LABS: BASOPHIL% 0.4 % (0-2.5); EOSINOPHIL# 0.1 X10e3 (0-0.7); EOSINOPHIL% 0.7 % (0.0-7.0); HEMATOCRIT 25.5 % (38.0-50.0); LYMPHOCYTE# 0.5 X10e3 (1.0-3.5); LYMPHOCYTE% 6.4 % (17.0-45.0); MEAN CELL VOLUME 69.9 FL (83-96); MEAN CORPUSCULAR HGB CONC 31.5 g/dL (30-36); MEAN PLATELET VOLUME 6.4 FL (6.5-11.5); MONOCYTE# 0.5 X10e3 (0-1.0); NEUTROPHIL# 7.3 X10e3 (1.5-7.1); NEUTROPHIL% 86.5 % (40-75); PLATELET COUNT 251 X10e3 (140-420); RED BLOOD COUNT 3.64 X10e (3.90-5.60); RED CELL DISTRIBUTION WIDTH 19.1 % (11.0-15.5); WHITE BLOOD COUNT 8.5 X10e3 (4.0-10.5)
[2016-09-25 03:54] LABS: DIFF IND NO
[2016-09-25 04:11] LABS: ALBUMIN SERUM 2.3 g/dL (3.5-5.0); BILIRUBIN,TOTAL 0.8 mg/dL (0.2-2.0); BUN/CREATININE RATIO 12.85; CALCIUM SERUM 7.7 mg/dL (8.4-10.2); CREATININE SERUM 0.7 mg/dL (0.6-1.4); GLOM FILT RATE Estimated 83.7 mL/min (>60); MAGNESIUM 1.9 mg/dL (1.6-3.0); PHOSPHOROUS 1.7 mg/dL (2.5-4.6); POTASSIUM 4.1 mmol/L (3.5-5.1)
[2016-09-26 04:31] LABS: HEMOGLOBIN 8.5 gm/dL (13.0-16.0); MEAN CELL VOLUME 70.2 FL (83-96); MEAN CORPUSCULAR HGB CONC 31.4 g/dL (30-36); MEAN PLATELET VOLUME 6.6 FL (6.5-11.5); RED BLOOD COUNT 3.84 X10e (3.90-5.60); WHITE BLOOD COUNT 6.8 X10e3 (4.0-10.5)
[2016-09-26 05:05] LABS: BUN/CREATININE RATIO 11.42; CALCIUM SERUM 7.7 mg/dL (8.4-10.2); CREATININE SERUM 0.7 mg/dL (0.6-1.4); GLOM FILT RATE Estimated 83.7 mL/min (>60); MAGNESIUM 2.5 mg/dL (1.6-3.0); PHOSPHOROUS 2.7 mg/dL (2.5-4.6); POTASSIUM 4.1 mmol/L (3.5-5.1)
[2016-09-27 04:03] LABS: BASOPHIL% 0.5 % (0-2.5); EOSINOPHIL# 0.3 X10e3 (0-0.7); HEMATOCRIT 30.1 % (38.0-50.0); HEMOGLOBIN 9.4 gm/dL (13.0-16.0); LYMPHOCYTE# 1.1 X10e3 (1.0-3.5); LYMPHOCYTE% 11.9 % (17.0-45.0); MEAN CELL VOLUME 71.2 FL (83-96); MEAN CORPUSCULAR HEMOGLOBIN 22.1 PG (28-34); MEAN CORPUSCULAR HGB CONC 31.1 g/dL (30-36); MEAN PLATELET VOLUME 6.6 FL (6.5-11.5); MONOCYTE# 0.6 X10e3 (0-1.0); MONOCYTE% 5.9 % (3.0-12.0); NEUTROPHIL# 7.6 X10e3 (1.5-7.1); NEUTROPHIL% 78.7 % (40-75); PLATELET COUNT 347 X10e3 (140-420); RED BLOOD COUNT 4.23 X10e (3.90-5.60); RED CELL DISTRIBUTION WIDTH 19.6 % (11.0-15.5); WHITE BLOOD COUNT 9.7 X10e3 (4.0-10.5)
[2016-09-27 04:04] LABS: DIFF IND NO
[2016-09-27 04:24] LABS: CALCIUM SERUM 7.8 mg/dL (8.4-10.2); CREATININE SERUM 0.6 mg/dL (0.6-1.4); GLOM FILT RATE Estimated 89.2 mL/min (>60); POTASSIUM 4.8 mmol/L (3.5-5.1)
[2016-09-28 03:26] LABS: BASOPHIL% 0.6 % (0-2.5); EOSINOPHIL# 0.2 X10e3 (0-0.7); EOSINOPHIL% 2.8 % (0.0-7.0); HEMATOCRIT 25.3 % (38.0-50.0); LYMPHOCYTE# 0.7 X10e3 (1.0-3.5); LYMPHOCYTE% 8.9 % (17.0-45.0); MEAN CELL VOLUME 69.8 FL (83-96); MEAN CORPUSCULAR HEMOGLOBIN 22.2 PG (28-34); MEAN CORPUSCULAR HGB CONC 31.8 g/dL (30-36); MEAN PLATELET VOLUME 6.3 FL (6.5-11.5); MONOCYTE# 0.5 X10e3 (0-1.0); MONOCYTE% 6.8 % (3.0-12.0); NEUTROPHIL# 6.2 X10e3 (1.5-7.1); NEUTROPHIL% 80.9 % (40-75); PLATELET COUNT 250 X10e3 (140-420); RED BLOOD COUNT 3.62 X10e (3.90-5.60); RED CELL DISTRIBUTION WIDTH 19.6 % (11.0-15.5); WHITE BLOOD COUNT 7.6 X10e3 (4.0-10.5)
[2016-09-28 03:28] LABS: DIFF IND NO
[2016-09-28 03:40] LABS: CALCIUM SERUM 7.6 mg/dL (8.4-10.2); CREATININE SERUM 0.8 mg/dL (0.6-1.4); GLOM FILT RATE Estimated 79.2 mL/min (>60); POTASSIUM 4.4 mmol/L (3.5-5.1)
[2016-09-29 04:27] LABS: BASOPHIL% 0.3 % (0-2.5); EOSINOPHIL# 0.1 X10e3 (0-0.7); EOSINOPHIL% 1.4 % (0.0-7.0); HEMATOCRIT 25.2 % (38.0-50.0); HEMOGLOBIN 7.9 gm/dL (13.0-16.0); LYMPHOCYTE# 0.6 X10e3 (1.0-3.5); LYMPHOCYTE% 7.4 % (17.0-45.0); MEAN CELL VOLUME 71.1 FL (83-96); MEAN CORPUSCULAR HEMOGLOBIN 22.3 PG (28-34); MEAN CORPUSCULAR HGB CONC 31.3 g/dL (30-36); MEAN PLATELET VOLUME 6.7 FL (6.5-11.5); MONOCYTE# 0.6 X10e3 (0-1.0); MONOCYTE% 6.9 % (3.0-12.0); NEUTROPHIL# 6.8 X10e3 (1.5-7.1); PLATELET COUNT 240 X10e3 (140-420); RED BLOOD COUNT 3.54 X10e (3.90-5.60); RED CELL DISTRIBUTION WIDTH 20.2 % (11.0-15.5); WHITE BLOOD COUNT 8.1 X10e3 (4.0-10.5)
[2016-09-29 04:29] LABS: DIFF IND YES
[2016-09-29 04:39] LABS: BUN/CREATININE RATIO 11.25; CALCIUM SERUM 7.3 mg/dL (8.4-10.2); CREATININE SERUM 0.8 mg/dL (0.6-1.4); GLOM FILT RATE Estimated 79.2 mL/min (>60); POTASSIUM 3.8 mmol/L (3.5-5.1)
[2016-09-29 04:52] LABS: HYPOCHROMIA SL; PLATELET ESTIMATE NORMAL (NORMAL)
[2016-09-30 01:47] LABS: BASOPHIL% 0.3 % (0-2.5); DIFF IND NO; EOSINOPHIL# 0.1 X10e3 (0-0.7); EOSINOPHIL% 1.1 % (0.0-7.0); HEMOGLOBIN 7.5 gm/dL (13.0-16.0); LYMPHOCYTE# 0.6 X10e3 (1.0-3.5); LYMPHOCYTE% 7.2 % (17.0-45.0); MEAN CELL VOLUME 71.1 FL (83-96); MEAN CORPUSCULAR HEMOGLOBIN 22.2 PG (28-34); MEAN CORPUSCULAR HGB CONC 31.3 g/dL (30-36); MEAN PLATELET VOLUME 6.4 FL (6.5-11.5); MONOCYTE# 0.5 X10e3 (0-1.0); MONOCYTE% 6.6 % (3.0-12.0); NEUTROPHIL# 6.8 X10e3 (1.5-7.1); NEUTROPHIL% 84.8 % (40-75); PLATELET COUNT 220 X10e3 (140-420); RED BLOOD COUNT 3.37 X10e (3.90-5.60); WHITE BLOOD COUNT 8.1 X10e3 (4.0-10.5)
[2016-09-30 02:10] LABS: BILIRUBIN,TOTAL 0.9 mg/dL (0.2-2.0); BUN/CREATININE RATIO 17.5; CALCIUM SERUM 7.3 mg/dL (8.4-10.2); CREATININE SERUM 0.8 mg/dL (0.6-1.4); GLOM FILT RATE Estimated 79.2 mL/min (>60); POTASSIUM 3.6 mmol/L (3.5-5.1); PROTEIN TOTAL SERUM 4.6 g/dL (6.0-8.3)
[2016-10-01 04:06] LABS: MEAN CELL VOLUME 72.4 FL (83-96); MEAN CORPUSCULAR HEMOGLOBIN 22.8 PG (28-34); MEAN CORPUSCULAR HGB CONC 31.4 g/dL (30-36); MEAN PLATELET VOLUME 6.8 FL (6.5-11.5); RED BLOOD COUNT 4.41 X10e (3.90-5.60); RED CELL DISTRIBUTION WIDTH 21.6 % (11.0-15.5); WHITE BLOOD COUNT 10.9 X10e3 (4.0-10.5)
[2016-10-01 04:28] LABS: ALBUMIN SERUM 2.2 g/dL (3.5-5.0); BILIRUBIN,TOTAL 1.5 mg/dL (0.2-2.0); BUN/CREATININE RATIO 13.75; CALCIUM SERUM 7.5 mg/dL (8.4-10.2); CREATININE SERUM 0.8 mg/dL (0.6-1.4); GLOM FILT RATE Estimated 79.2 mL/min (>60); POTASSIUM 3.3 mmol/L (3.5-5.1); PROTEIN TOTAL SERUM 5.1 g/dL (6.0-8.3)
[2016-10-01 10:44] LABS: URINE APPEARANCE CLOUDY; URINE BILIRUBIN NEG (NEG); URINE BLOOD 1+ (NEG); URINE COLOR DK YELLOW; URINE GLUCOSE NEG (NEG); URINE KETONE 3+ (NEG); URINE LEUKOCYTE ESTERASE 1+ (NEG); URINE NITRATE NEG (NEG); URINE PH 5.5 (5-8); URINE PROTEIN 1+ (NEG); URINE SPECIFIC GRAVITY 1.023 (1.003-1.035)
[2016-10-01 10:45] LABS: URINE BACTERIA AUWI 3+ (NEGATIVE); URINE SQUAMOUS EPITHELIAL CELL OCC /[HPF]
[2016-10-01 10:54] LABS: U HYALINE CASTS AUWI 0-2 /[LPF]
[2016-10-01 10:59] LABS: URINE YEAST PRESENT
[2016-10-02 02:18] LABS: BASOPHIL% 0.3 % (0-2.5); EOSINOPHIL# 0.1 X10e3 (0-0.7); EOSINOPHIL% 0.7 % (0.0-7.0); HEMATOCRIT 28.3 % (38.0-50.0); LYMPHOCYTE# 0.6 X10e3 (1.0-3.5); MEAN CELL VOLUME 71.8 FL (83-96); MEAN CORPUSCULAR HEMOGLOBIN 22.7 PG (28-34); MEAN CORPUSCULAR HGB CONC 31.6 g/dL (30-36); MEAN PLATELET VOLUME 6.7 FL (6.5-11.5); MONOCYTE# 0.6 X10e3 (0-1.0); MONOCYTE% 7.9 % (3.0-12.0); NEUTROPHIL# 6.5 X10e3 (1.5-7.1); NEUTROPHIL% 83.1 % (40-75); PLATELET COUNT 264 X10e3 (140-420); RED BLOOD COUNT 3.94 X10e (3.90-5.60); RED CELL DISTRIBUTION WIDTH 21.8 % (11.0-15.5); WHITE BLOOD COUNT 7.9 X10e3 (4.0-10.5)
[2016-10-02 02:24] LABS: DIFF IND NO
[2016-10-02 03:01] LABS: ALBUMIN SERUM 1.7 g/dL (3.5-5.0); BILIRUBIN,TOTAL 0.5 mg/dL (0.2-2.0); BUN/CREATININE RATIO 11.11; CALCIUM SERUM 7.1 mg/dL (8.4-10.2); CREATININE SERUM 0.9 mg/dL (0.6-1.4); GLOM FILT RATE Estimated 75.5 mL/min (>60); MAGNESIUM 1.4 mg/dL (1.6-3.0); PHOSPHOROUS 1.3 mg/dL (2.5-4.6); POTASSIUM 3.8 mmol/L (3.5-5.1); PROTEIN TOTAL SERUM 4.3 g/dL (6.0-8.3)
[2016-10-03 02:02] LABS: BASOPHIL% 0.1 % (0-2.5); HEMATOCRIT 30.2 % (38.0-50.0); HEMOGLOBIN 9.5 gm/dL (13.0-16.0); LYMPHOCYTE# 0.3 X10e3 (1.0-3.5); LYMPHOCYTE% 2.3 % (17.0-45.0); MEAN CELL VOLUME 70.8 FL (83-96); MEAN CORPUSCULAR HEMOGLOBIN 22.3 PG (28-34); MEAN CORPUSCULAR HGB CONC 31.4 g/dL (30-36); MEAN PLATELET VOLUME 6.9 FL (6.5-11.5); MONOCYTE# 0.4 X10e3 (0-1.0); MONOCYTE% 3.9 % (3.0-12.0); NEUTROPHIL# 10.4 X10e3 (1.5-7.1); NEUTROPHIL% 93.7 % (40-75); PLATELET COUNT 319 X10e3 (140-420); RED BLOOD COUNT 4.27 X10e (3.90-5.60); WHITE BLOOD COUNT 11.1 X10e3 (4.0-10.5)
[2016-10-03 02:03] LABS: DIFF IND NO
[2016-10-03 02:31] LABS: ALBUMIN SERUM 1.8 g/dL (3.5-5.0); ALKALINE PHOSPHATASE 68 U/L (32-92); ALT (SGPT) 7 U/L (10-40); AST (SGOT) 18 U/L (10-42); BILIRUBIN,TOTAL 0.7 mg/dL (0.2-2.0); BLOOD UREA NITROGEN 14 mg/dL (9-23); CARBON DIOXIDE 22 mmol/L (22-31); CHLORIDE 105 mmol/L (100-111); CREATININE SERUM 0.7 mg/dL (0.6-1.4); GLOM FILT RATE Estimated 83.7 mL/min (>60); GLUCOSE FASTING 189 mg/dL (70-110); MAGNESIUM 1.7 mg/dL (1.6-3.0); PHOSPHOROUS 2.5 mg/dL (2.5-4.6); POTASSIUM 4.9 mmol/L (3.5-5.1); PREALBUMIN <2.0 mg/dL (17.0-42.0); PROTEIN TOTAL SERUM 5.1 g/dL (6.0-8.3); SODIUM 131 mmol/L (135-145)
[2016-10-04 03:10] LABS: HEMATOCRIT 28.6 % (38.0-50.0); HEMOGLOBIN 9.1 gm/dL (13.0-16.0); MEAN CELL VOLUME 71.1 FL (83-96); MEAN CORPUSCULAR HEMOGLOBIN 22.6 PG (28-34); MEAN CORPUSCULAR HGB CONC 31.8 g/dL (30-36); MEAN PLATELET VOLUME 6.9 FL (6.5-11.5); RED BLOOD COUNT 4.02 X10e (3.90-5.60); RED CELL DISTRIBUTION WIDTH 22.7 % (11.0-15.5); WHITE BLOOD COUNT 9.2 X10e3 (4.0-10.5)
[2016-10-04 03:40] LABS: CALCIUM SERUM 7.2 mg/dL (8.4-10.2); CREATININE SERUM 0.7 mg/dL (0.6-1.4); GLOM FILT RATE Estimated 83.7 mL/min (>60); PHOSPHOROUS 2.1 mg/dL (2.5-4.6); POTASSIUM 4.3 mmol/L (3.5-5.1)
[2016-10-05 03:29] LABS: HEMATOCRIT 29.2 % (38.0-50.0); MEAN CELL VOLUME 72.8 FL (83-96); MEAN CORPUSCULAR HEMOGLOBIN 22.5 PG (28-34); MEAN PLATELET VOLUME 6.9 FL (6.5-11.5); RED BLOOD COUNT 4.01 X10e (3.90-5.60); RED CELL DISTRIBUTION WIDTH 23.2 % (11.0-15.5); WHITE BLOOD COUNT 11.4 X10e3 (4.0-10.5)
[2016-10-05 03:55] LABS: BUN/CREATININE RATIO 18.75; CALCIUM SERUM 7.1 mg/dL (8.4-10.2); CREATININE SERUM 0.8 mg/dL (0.6-1.4); GLOM FILT RATE Estimated 79.2 mL/min (>60); MAGNESIUM 1.8 mg/dL (1.6-3.0); PHOSPHOROUS 1.9 mg/dL (2.5-4.6); POTASSIUM 3.5 mmol/L (3.5-5.1)
[2016-10-06 04:10] LABS: HEMATOCRIT 26.7 % (38.0-50.0); HEMOGLOBIN 8.5 gm/dL (13.0-16.0); MEAN CELL VOLUME 72.7 FL (83-96); MEAN CORPUSCULAR HEMOGLOBIN 23.1 PG (28-34); MEAN CORPUSCULAR HGB CONC 31.8 g/dL (30-36); MEAN PLATELET VOLUME 6.7 FL (6.5-11.5); RED BLOOD COUNT 3.67 X10e (3.90-5.60); WHITE BLOOD COUNT 7.8 X10e3 (4.0-10.5)
[2016-10-06 05:12] LABS: ALBUMIN SERUM 1.6 g/dL (3.5-5.0); BILIRUBIN,TOTAL 0.7 mg/dL (0.2-2.0); BUN/CREATININE RATIO 17.14; CALCIUM SERUM 7.2 mg/dL (8.4-10.2); CREATININE SERUM 0.7 mg/dL (0.6-1.4); GLOM FILT RATE Estimated 83.7 mL/min (>60); MAGNESIUM 1.7 mg/dL (1.6-3.0); PHOSPHOROUS 2.4 mg/dL (2.5-4.6); POTASSIUM 3.6 mmol/L (3.5-5.1); PROTEIN TOTAL SERUM 4.4 g/dL (6.0-8.3)
[2016-10-06 05:13] LABS: PREALBUMIN 8.1 mg/dL (17.0-42.0)
[2016-10-07 04:10] LABS: BASOPHIL% 0.5 % (0-2.5); EOSINOPHIL# 0.2 X10e3 (0-0.7); EOSINOPHIL% 2.8 % (0.0-7.0); HEMOGLOBIN 8.2 gm/dL (13.0-16.0); LYMPHOCYTE# 0.8 X10e3 (1.0-3.5); LYMPHOCYTE% 12.1 % (17.0-45.0); MEAN CELL VOLUME 72.7 FL (83-96); MEAN CORPUSCULAR HEMOGLOBIN 22.8 PG (28-34); MEAN CORPUSCULAR HGB CONC 31.4 g/dL (30-36); MEAN PLATELET VOLUME 6.7 FL (6.5-11.5); MONOCYTE# 0.6 X10e3 (0-1.0); MONOCYTE% 8.5 % (3.0-12.0); NEUTROPHIL# 5.1 X10e3 (1.5-7.1); NEUTROPHIL% 76.1 % (40-75); PLATELET COUNT 255 X10e3 (140-420); RED BLOOD COUNT 3.57 X10e (3.90-5.60); RED CELL DISTRIBUTION WIDTH 23.8 % (11.0-15.5); WHITE BLOOD COUNT 6.7 X10e3 (4.0-10.5)
[2016-10-07 04:11] LABS: DIFF IND YES
[2016-10-07 04:32] LABS: ALBUMIN SERUM 1.6 g/dL (3.5-5.0); BILIRUBIN,TOTAL 0.6 mg/dL (0.2-2.0); BUN/CREATININE RATIO 15.71; CALCIUM SERUM 7.1 mg/dL (8.4-10.2); CREATININE SERUM 0.7 mg/dL (0.6-1.4); GLOM FILT RATE Estimated 83.7 mL/min (>60); MAGNESIUM 1.7 mg/dL (1.6-3.0); PHOSPHOROUS 3.5 mg/dL (2.5-4.6); POTASSIUM 3.4 mmol/L (3.5-5.1); PREALBUMIN 7.2 mg/dL (17.0-42.0); PROTEIN TOTAL SERUM 4.4 g/dL (6.0-8.3)
[2016-10-07 04:52] LABS: ANISOCYTOSIS MOD; HYPOCHROMIA SL; PLATELET ESTIMATE NORMAL (NORMAL); POIKILOCYTOSIS MOD; POLYCHROMASIA SL
[2016-10-08 04:25] LABS: HEMATOCRIT 22.6 % (38.0-50.0); HEMOGLOBIN 7.2 gm/dL (13.0-16.0); MEAN CELL VOLUME 72.3 FL (83-96); MEAN CORPUSCULAR HEMOGLOBIN 23.1 PG (28-34); MEAN CORPUSCULAR HGB CONC 31.9 g/dL (30-36); MEAN PLATELET VOLUME 6.6 FL (6.5-11.5); RED BLOOD COUNT 3.12 X10e (3.90-5.60); RED CELL DISTRIBUTION WIDTH 24.6 % (11.0-15.5)
[2016-10-08 04:47] LABS: ALBUMIN SERUM 2.1 g/dL (3.5-5.0); BILIRUBIN,TOTAL 0.8 mg/dL (0.2-2.0); BUN/CREATININE RATIO 11.25; CREATININE SERUM 0.8 mg/dL (0.6-1.4); GLOM FILT RATE Estimated 79.2 mL/min (>60); POTASSIUM 3.2 mmol/L (3.5-5.1); PROTEIN TOTAL SERUM 4.3 g/dL (6.0-8.3)
[2016-10-09 04:26] LABS: HEMATOCRIT 37.9 % (38.0-50.0); MEAN CORPUSCULAR HEMOGLOBIN 23.3 PG (28-34); MEAN CORPUSCULAR HGB CONC 30.9 g/dL (30-36); MEAN PLATELET VOLUME 6.7 FL (6.5-11.5); RED BLOOD COUNT 5.03 X10e (3.90-5.60); RED CELL DISTRIBUTION WIDTH 25.3 % (11.0-15.5)
[2016-10-09 04:30] LABS: MEAN CELL VOLUME 75.4 FL (83-96); WHITE BLOOD COUNT 17.2 X10e3 (4.0-10.5)
[2016-10-09 04:31] LABS: HEMOGLOBIN 11.7 gm/dL (13.0-16.0)
[2016-10-09 04:43] LABS: BUN/CREATININE RATIO 9.23; CALCIUM SERUM 7.3 mg/dL (8.4-10.2); CREATININE SERUM 1.3 mg/dL (0.6-1.4); GLOM FILT RATE Estimated 48.4 mL/min (>60); POTASSIUM 3.9 mmol/L (3.5-5.1)
[2016-10-10 04:01] LABS: BASOPHIL% 0.1 % (0-2.5); DIFF IND NO; EOSINOPHIL# 0.1 X10e3 (0-0.7); EOSINOPHIL% 1.1 % (0.0-7.0); HEMATOCRIT 32.7 % (38.0-50.0); HEMOGLOBIN 10.5 gm/dL (13.0-16.0); LYMPHOCYTE# 0.8 X10e3 (1.0-3.5); MEAN CORPUSCULAR HEMOGLOBIN 23.9 PG (28-34); MEAN CORPUSCULAR HGB CONC 31.9 g/dL (30-36); MEAN PLATELET VOLUME 6.8 FL (6.5-11.5); MONOCYTE# 0.7 X10e3 (0-1.0); MONOCYTE% 5.3 % (3.0-12.0); NEUTROPHIL# 11.4 X10e3 (1.5-7.1); NEUTROPHIL% 87.5 % (40-75); PLATELET COUNT 311 X10e3 (140-420); RED BLOOD COUNT 4.37 X10e (3.90-5.60); RED CELL DISTRIBUTION WIDTH 25.8 % (11.0-15.5); WHITE BLOOD COUNT 13.1 X10e3 (4.0-10.5)
[2016-10-10 04:24] LABS: ALBUMIN SERUM 1.8 g/dL (3.5-5.0); BILIRUBIN,TOTAL 0.9 mg/dL (0.2-2.0); CALCIUM SERUM 7.3 mg/dL (8.4-10.2); CREATININE SERUM 1.5 mg/dL (0.6-1.4); GLOM FILT RATE Estimated 40.7 mL/min (>60); POTASSIUM 3.7 mmol/L (3.5-5.1); PROTEIN TOTAL SERUM 4.6 g/dL (6.0-8.3)
[2016-12-09] MEDS ORDERED: LOMOTIL WHITE2.5 M1 PO (09:34)
[2016-12-09] MEDS ORDERED: MEGACE ORA40 MG/ML S PO (09:35)
[2016-12-09] MEDS ORDERED: ONDANSETRON ODT4 MG PO (09:35)
[2017-01-08] MEDS ORDERED: FLORINEF0.1 M1 PO (16:11)
[2017-01-08] MEDS ORDERED: KCL PO (16:12)
[2017-01-08] MEDS ORDERED: ALLOPURINOL300 MG PO (16:13)
[2017-01-08] MEDS ORDERED: SINEMET-25/1001 TA1 PO (16:13)
[2017-01-08] MEDS ORDERED: PRILOSEC PO (16:14)
[2017-01-08] MEDS ORDERED: FLOMAX0.4 M1 PO (16:14)
[2017-01-08] MEDS ORDERED: ELIQUIS2.5 MG PO (16:15)
[2017-01-08] MEDS ORDERED: ACETAMINOPHEN PO (16:15)
[2017-01-08] MEDS ORDERED: NEURONTIN100 MG PO (16:16)
[2017-01-08] MEDS ORDERED: BACID PO (16:16)
[2017-01-08] MEDS ORDERED: FERROUS SULFAT324 MG PO (16:17)
[2017-01-08] MEDS ORDERED: VANCOMYCIN HCL500 MG PO ×3 (16:23→16:25)
== END 2016-10-10 17:15 | DRG 330 ==
LOC: COPS 14:30 → CEDOF 17:50 → C4C 17:50 → CEDOF 18:06 → COPS 18:06 → C4C 21:00 → CEDOF 21:00 → C4C 09-27 07:46
PROVIDERS: Internal Medicine Cardiovascular Disease; Internal Medicine Gastroenterology; Nurse Practitioner; Specialist; Surgery
PROC: 0DB58ZX Excision of Esophagus, Via Natural or Artificial Opening Endoscopic, Diagnostic (ICD-10-PCS; 2016-09-22)
PROC: 0DB78ZX Excision of Stomach, Pylorus, Via Natural or Artificial Opening Endoscopic, Diagnostic (ICD-10-PCS; 2016-09-22)
PROC: 0D758ZZ Dilation of Esophagus, Via Natural or Artificial Opening Endoscopic (ICD-10-PCS; 2016-09-22)
PROC: 30233N1 Transfusion of Nonautologous Red Blood Cells into Peripheral Vein, Percutaneous Approach (ICD-10-PCS; 2016-09-22)
PROC: 0DBK8ZX Excision of Ascending Colon, Via Natural or Artificial Opening Endoscopic, Diagnostic (ICD-10-PCS; 2016-09-22 16:00)
PROC: B24BZZZ Ultrasonography of Heart with Aorta (ICD-10-PCS; 2016-09-23)
PROC: 0DTF0ZZ Resection of Right Large Intestine, Open Approach (ICD-10-PCS; principal; 2016-09-23 16:00)
PROC: 0W9G0ZZ Drainage of Peritoneal Cavity, Open Approach (ICD-10-PCS; 2016-10-02)
PROC: 3E1M38Z Irrigation of Peritoneal Cavity using Irrigating Substance, Percutaneous Approach (ICD-10-PCS; 2016-10-02)
PROC: 02HV33Z Insertion of Infusion Device into Superior Vena Cava, Percutaneous Approach (ICD-10-PCS; 2016-10-03)
PROC: B548ZZA Ultrasonography of Superior Vena Cava, Guidance (ICD-10-PCS; 2016-10-03)
PROC: 30243J1 Transfusion of Nonautologous Serum Albumin into Central Vein, Percutaneous Approach (ICD-10-PCS; 2016-10-07)
PROC: 0WUF0JZ Supplement Abdominal Wall with Synthetic Substitute, Open Approach (ICD-10-PCS; 2016-10-08)
PROC: 0JB80ZZ Excision of Abdomen Subcutaneous Tissue and Fascia, Open Approach (ICD-10-PCS; 2016-10-08)
DX: C18.2 Malignant neoplasm of ascending colon (principal); T81.31XA Disruption of external operation (surgical) wound, not elsewhere classified, initial encounter; N17.9 Acute kidney failure, unspecified; E44.0 Moderate protein-calorie malnutrition; C77.9 Secondary and unspecified malignant neoplasm of lymph node, unspecified; R18.8 Other ascites; E87.2 Acidosis; E87.1 Hypo-osmolality and hyponatremia; G20 Parkinson's disease; T81.4XXA Infection following a procedure, initial encounter; N39.0 Urinary tract infection, site not specified; K56.7 Ileus, unspecified; B37.49 Other urogenital candidiasis; I48.0 Paroxysmal atrial fibrillation; I10 Essential (primary) hypertension; I44.7 Left bundle-branch block, unspecified; Y83.8 Other surgical procedures as the cause of abnormal reaction of the patient, or of later complication, without mention of misadventure at the time of the procedure; Y92.231 Patient bathroom in hospital as the place of occurrence of the external cause; K57.30 Diverticulosis of large intestine without perforation or abscess without bleeding; K22.2 Esophageal obstruction; N40.0 Benign prostatic hyperplasia without lower urinary tract symptoms; Z79.82 Long term (current) use of aspirin; D50.9 Iron deficiency anemia, unspecified; M10.9 Gout, unspecified; Z68.21 Body mass index [BMI] 21.0-21.9, adult; Z88.0 Allergy status to penicillin; Z80.8 Family history of malignant neoplasm of other organs or systems; Z85.46 Personal history of malignant neoplasm of prostate; Z92.3 Personal history of irradiation; I73.9 Peripheral vascular disease, unspecified; I08.3 Combined rheumatic disorders of mitral, aortic and tricuspid valves; R00.0 Tachycardia, unspecified; E86.0 Dehydration
CPT/HCPCS: 74020; 74176; 76937; 77001; 80048; 80053; 81003; 82378; 82947; 83605; 83735; 84100; 84134; 84478; 85025; 85027; 86677; 86850; 86900; 86901; 86923; 87045; 87077; 87177; 87209; 87427; 87493; 87899; 88305; 88309; 88341; 88342; 93005; 93306; 93970; 94010; 94760; 97110; 97116; 97162; 97164; 97166; 97168; 97530; 97535; C1751; C1781; C9113; G8978-GP; G8979-GP; G8987-GO; G8988-GO; J0330; J1100; J1450; J1650; J2270; J2405; J2550; J2710; J2765; J2916; J3010; J3475; J3490; P9016; P9047